=== PATIENT | male | born 1975 | race Caucasian/White ===

== ENCOUNTER → 2018-11-20 12:06 | Outpatient (CLI) | payer OTHER ==
[2015-12-01 03:59] VITALS: BMI 28.9
[~2018-11-20 12:06] MED LIST: ANDROGEL5 GM TP; CLONAZEPAM2 MG/TAB PO; GABAPENTIN100 MG PO; HYDROCODONE-APA1 TAB PO; IBUPROFEN800 MG PO; PEPCID20 MG PO; PERCOCET 10/3251 TA1 PO; PRINIVIL20 MG PO; ZANAFLEX4 MG PO
== END | disposition home or self-care (01) ==
LOC: D.RAD 12:00
PROVIDERS: ATTEND Pediatrics
DX: Z02.71 Encounter for disability determination (principal)

== ENCOUNTER 2019-07-02 09:00 | Outpatient (CLI) | payer BC ==
[2015-12-01 03:59] VITALS: BMI 28.9
== END 2019-07-02 10:00 | disposition home or self-care (01) ==
LOC: D.MAMMO 09:00
PROVIDERS: ATTEND Emergency Medicine
DX: N64.4 Mastodynia (principal)

== ENCOUNTER 2019-11-18 20:41 | Inpatient (IN) | payer BC ==
[~2019-11-18] VITALS: Ht 188 cm; Wt 107.5 kg
[2019-11-18 21:00] VITALS: BP 154/93
[2019-11-18 21:07] LABS: BASOPHILS 0.1 % (0-2); EOSINOPHILS 0.1 % (0-7); HEMATOCRIT 42.9 % (42.0-54.0); HEMOGLOBIN 14.9 g/dL (13.5-17.5); IMMATURE GRANULOCYTES 0.3 % (0-5); LYMPHOCYTES 9.8 % (15-50); MCH 30.5 pg (26.0-34.0); MCHC 34.7 g/dL (31.0-37.0); MCV 87.7 fL (80.0-100.0); MEAN PLATELET VOLUME 9.3 fL (7.4-10.4); MONOCYTES 4.8 % (2-11); NEUTROPHILS 84.9 % (40-80); PLATELET COUNT 143 10x3/uL (130-400); RBC 4.89 10x6/uL (4.20-6.10); RDW 12.5 % (11.5-14.5); WBC 9.4 10x3/uL (4.8-10.8)
[2019-11-18 21:19] LABS: CALC OSMOLALITY 279 mosm/kg (275-300); CALCIUM 10.1 mg/dL (8.5-10.1); CARBON DIOXIDE 26.6 mmol/L (21.0-32.0); CHLORIDE - SERUM 104 mmol/L (98-107); CREATININE - SERUM 1.1 mg/dL (0.6-1.3); GLUCOSE 107 mg/dL (74-106); POTASSIUM - SERUM 3.2 mmol/L (3.5-5.1); SODIUM 139 mmol/L (136-145); UREA NITROGEN 17 mg/dL (7-18); eGFR NON AFRICAN AMERICAN 78 mL/min (90-120)
[2019-11-18 21:20] LABS: BILIRUBIN NEGATIVE (NEGATIVE); GLUCOSE NEGATIVE (NEGATIVE); KETONE NEGATIVE (NEGATIVE); NITRITE NEGATIVE (NEGATIVE); UROBILINOGEN NORMAL (NORMAL)
[2019-11-18 21:30] VITALS: BP 151/91
[2019-11-18 21:42] LABS: ALKALINE PHOSPHATASE 51 U/L (30-120); ALT (SGPT) 30 U/L (10-68); AMYLASE - SERUM 25 U/L (25-115); BILIRUBIN - TOTAL 0.86 mg/dL (0.2-1.3); LIPASE 51 U/L (73-393); PROTEIN - SERUM 7.2 g/dL (6.4-8.2); TROPONIN-I < 0.017 ng/mL (0.000-0.060)
[2019-11-18 23:57] VITALS: BP 177/105; BMI 30.5
[2019-11-19] VITALS: BP 177/105
--- NOTE | 2019-11-19 | NUR ---
PT ARRIVED TO THE FLOOR. ALERT AND ORIENTED. PT IN A LOT OF PAIN. TRYING FOR NEW ORDER OF PAIN MEDICATION. IV SITE LT AC DRESSING CLEAN DRY AND INTACT. BREATHING EVEN AND LABORED. LUNG SOUNDS CLEAR. ABD DISTENDED AND TENDER TO THE TOUCH. SKIN CLEAN DRY AND INTACT. WILL CONTINUE PLAN OF CARE. CALL LIGHT IN REACH. BED LOWERED AND LOCKED. BED RAILS UPX2.
[2019-11-19 01:48] LABS: CREATINE KINASE 145 UL (21-232); TROPONIN-I < 0.017 ng/mL (0.000-0.060)
[2019-11-19 04:00] VITALS: BP 163/106
[2019-11-19 07:11] LABS: ALBUMIN 3.8 g/dL (3.4-5.0); ALKALINE PHOSPHATASE 35 U/L (30-120); ALT (SGPT) 24 U/L (10-68); AMYLASE - SERUM 20 U/L (25-115); BILIRUBIN - TOTAL 1.82 mg/dL (0.2-1.3); CALCIUM 9.7 mg/dL (8.5-10.1); CARBON DIOXIDE 28.7 mmol/L (21.0-32.0); CHLORIDE - SERUM 102 mmol/L (98-107); CKMB 1.4 U/L (0.0-3.6); CREATINE KINASE 92 UL (21-232); CREATININE - SERUM 1.2 mg/dL (0.6-1.3); LIPASE 55 U/L (73-393); PROTEIN - SERUM 6.9 g/dL (6.4-8.2); SODIUM 137 mmol/L (136-145); UREA NITROGEN 16 mg/dL (7-18); eGFR NON AFRICAN AMERICAN 70 mL/min (90-120)
[2019-11-19 07:12] LABS: CALC OSMOLALITY 278 mosm/kg (275-300); GLUCOSE 174 mg/dL (74-106); POTASSIUM - SERUM 4.2 mmol/L (3.5-5.1); TROPONIN-I < 0.017 ng/mL (0.000-0.060)
[2019-11-19 07:12] LABS: APTT 29.9 SECONDS (22.8-39.4); INR 1.07 (0.85-1.17); PROTIME 13.9 SECONDS (11.6-15.0)
[2019-11-19 07:31] LABS: BASOPHILS 0 % (0-2); EOSINOPHILS 0 % (0-7); HEMATOCRIT 44.2 % (42.0-54.0); HEMOGLOBIN 15.3 g/dL (13.5-17.5); IMMATURE GRANULOCYTES 0.2 % (0-5); LYMPHOCYTES 7.3 % (15-50); MCH 30.6 pg (26.0-34.0); MCHC 34.6 g/dL (31.0-37.0); MCV 88.4 fL (80.0-100.0); MEAN PLATELET VOLUME 9.6 fL (7.4-10.4); MONOCYTES 10.8 % (2-11); NEUTROPHILS 81.7 % (40-80); PLATELET COUNT 124 10x3/uL (130-400); RDW 12.5 % (11.5-14.5)
[2019-11-19 07:34] LABS: WBC 4.4 10x3/uL (4.8-10.8)
[2019-11-19 08:00] VITALS: BP 152/96
[2019-11-19 12:00] VITALS: BP 139/94
[2019-11-19 12:48] VITALS: BMI 30.4
[2019-11-19 14:02] VITALS: Ht 188 cm; Wt 107.5 kg
--- NOTE | 2019-11-19 15:57 | NUR ---
PT TEMP 101.4.
[2019-11-19 16:00] VITALS: BP 131/81
[2019-11-19 17:22] LABS: CREATINE KINASE 42 UL (21-232)
[2019-11-19 17:24] LABS: TROPONIN-I < 0.017 ng/mL (0.000-0.060)
[2019-11-19 20:00] VITALS: BP 130/88
[2019-11-20] VITALS: BP 144/90
--- NOTE | 2019-11-20 02:30 | NUR ---
PT TEMP 103.3 - PAGED CHIRAG MENDEZ. CHANGED TYLENOL FROM EVERY Q6HP TO Q4HP (GIVE A DOSE NOW), CXR AND LACTIC ACID ORDERED FOR THIS AM PER VANESSA'S TELEPHONE ORDER. GAVE TYLENOL 650 MG PO WITH SIP OF WATER, ATIVAN 1 MG FOR ANXIETY AND SCHEDULED TORADOL IV PUSH. NO OTHER NEEDS. WILL REASSESS AND CONTINUE TO MONITOR.
[2019-11-20 04:00] VITALS: BP 128/68
[2019-11-20 05:36] LABS: BASOPHILS 0 % (0-2); EOSINOPHILS 0 % (0-7); HEMATOCRIT 42.5 % (42.0-54.0); HEMOGLOBIN 14.2 g/dL (13.5-17.5); IMMATURE GRANULOCYTES 0.2 % (0-5); LYMPHOCYTES 9.1 % (15-50); MCH 30.3 pg (26.0-34.0); MCHC 33.4 g/dL (31.0-37.0); MEAN PLATELET VOLUME 9.2 fL (7.4-10.4); MONOCYTES 3.7 % (2-11); PLATELET COUNT 113 10x3/uL (130-400); RBC 4.68 10x6/uL (4.20-6.10); RDW 12.7 % (11.5-14.5); WBC 4.8 10x3/uL (4.8-10.8)
[2019-11-20 05:38] LABS: MCV 90.8 fL (80.0-100.0)
[2019-11-20 05:54] LABS: ANION GAP 9.7 mmol/L (8-16); BILIRUBIN - TOTAL 1.86 mg/dL (0.2-1.3); CALCIUM 9.6 mg/dL (8.5-10.1); CARBON DIOXIDE 28.3 mmol/L (21.0-32.0); CREATININE - SERUM 1.5 mg/dL (0.6-1.3); MAGNESIUM - SERUM 2.2 mg/dL (1.8-2.4); PROTEIN - SERUM 6.7 g/dL (6.4-8.2)
--- NOTE | 2019-11-20 08:15 | NUR ---
PATIENT IN BED WITH IV INTACT. NO COMPLAINTS OR SIGNS OF DISTRESS. CALL LIGHT WITHIN REACH.
[2019-11-20 08:36] VITALS: BP 146/80
--- NOTE | 2019-11-20 10:40 | NUR ---
PATIENT UP AMBULATING IN [place]. NO COMPLAINTS AT THIS TIME. CALL LIGHT WITHIN REACH.
[2019-11-20 12:00] VITALS: BP 146/80
--- NOTE | 2019-11-20 15:10 | NUR ---
NOTIFIED DR. PRIDE THAT THERE ARE NO DEMEROL SPANISH LECTURER'S. STATED TO GIVE PATIENT DEMEROL IVP 25 MG Q2H PRN. PATIENT STATED HE DID NOT WANT TO GET RID OF HIS SPANISH LECTURER. WILL NOTIFY DR. PRIDE. SPANISH LECTURER DILAUDID LEFT AND DID NOT ORDER DEMEROL. PATIENT RECIEVED TYLENOL PRN AND ATIVAN PRN AT THIS TIME. SCHEDULED MEDS GIVEN WELL. IV INTACT. CALL LIGHT WITHIN REACH.
[2019-11-20 16:00] VITALS: BP 142/76
--- NOTE | 2019-11-20 16:30 | NUR ---
PATIENT STILL COMPLAINING OF A RIVERA. ALREADY GAVE TYLENOL, TORADOL, AND ATIVAN. PATIENT DOESNT WANT TO CHANGE DILAUDID FUNERAL PRE ARRANGEMENT SPECIALIST. EXPLAINED I DIDNT KNOW ANYTHING ELSE THAT COULD BE CAUSING RIVERA, BUT IF HE WANTED TO CHANGE HIS MIND ABOUT THE DILAUDID TO LET ME KNOW. VERBALIZED UNDERSTANDING. CALL LIGHT WITHIN REACH.
--- NOTE | 2019-11-20 18:10 | NUR ---
PATIENT STATED HE VOMITTED UP SOME BILE IN TOILET. SMALL AMOUNT. NO NAUSEA NOW. STATED RIVERA WASNT BETTER BUT DOESNT SEEM TO BE IN ANY DISTRESS. HAS HAD 3 BM'S TODAY. STATED HE HOPES HE CAN HAVE SOME SHERBERT SOON. NO COMPLAINTS AT THIS TIME. MOUTH WASH, TOOTHPASTE, AND TOOTHBRUSH GIVEN TO PATIENT. CALL LIGHT WITHIN REACH.
[2019-11-20 20:00] VITALS: BP 136/87
--- NOTE | 2019-11-20 20:00 | NUR ---
PT STATES HE IS NAUSEATED. GAVE PT EMESIS BAG AND PILLOW TO SPLINT WHILE I WENT TO GET ZOFRAN. PT VOMITED APPROX 600 CC'S GREEN EMESIS. GAVE PT ZOFRAN. PT STATES HE IS NO LONGER NAUSEATED BUT C/O OF HEADACHE PAIN 11/30. GAVE TYLENOL FOR HEADACHE PAIN. PT STATES TORADOL MAY BE CAUSING HIS HEADACHE AND REFUSED THE SCHEDULED DOSE. DILAUDID SUPERVISOR PERSONNEL CLERKS FOR PAIN CONTROL. NO OTHER NEEDS. WILL REASSESS AND CONTINUE TO MONITOR.
[2019-11-21] VITALS: BP 150/93
--- NOTE | 2019-11-21 02:45 | NUR ---
PT STATES HIS HEADACHE PAIN IS BETTER 4 OR 5/10. REFUSED THIS DOSE OF TORADOL. GAVE TYLENOL FOR HEADACHE. STATES HIS ABDOMEN FEELS SOFTER, LESS TIGHT. NO OTHER NEEDS. WILL REASSESS AND CONTINUE TO MONITOR.
[2019-11-21 04:00] VITALS: BP 148/97
[2019-11-21 05:46] LABS: ALBUMIN 2.5 g/dL (3.4-5.0); ANION GAP 10.1 mmol/L (8-16); BILIRUBIN - TOTAL 1.1 mg/dL (0.2-1.3); CALCIUM 9.7 mg/dL (8.5-10.1); CREATININE - SERUM 1.2 mg/dL (0.6-1.3); MAGNESIUM - SERUM 2.2 mg/dL (1.8-2.4); POTASSIUM - SERUM 4.1 mmol/L (3.5-5.1); PROTEIN - SERUM 6.3 g/dL (6.4-8.2)
[2019-11-21 06:56] LABS: BASOPHILS 0 % (0-2); EOSINOPHILS 0.3 % (0-7); HEMATOCRIT 37.3 % (42.0-54.0); HEMOGLOBIN 12.3 g/dL (13.5-17.5); IMMATURE GRANULOCYTES 0.2 % (0-5); LYMPHOCYTES 6.8 % (15-50); MCH 29.9 pg (26.0-34.0); MCV 90.5 fL (80.0-100.0); MEAN PLATELET VOLUME 9.8 fL (7.4-10.4); MONOCYTES 6.5 % (2-11); NEUTROPHILS 86.2 % (40-80); PLATELET COUNT 111 10x3/uL (130-400); RBC 4.12 10x6/uL (4.20-6.10); RDW 12.2 % (11.5-14.5); WBC 5.9 10x3/uL (4.8-10.8)
[2019-11-21 08:00] VITALS: BP 153/92
--- NOTE | 2019-11-21 08:00 | NUR ---
TURNED OFF HOST. PATIENT DIDNT WANT ANYMORE. STARTED DEMORAL IV 25 MG Q2HPRN ORDERED PREVIOUSLY BY DR. PRIDE. PATIENT FEELING BETTER. RESTING QUIETLY WITH NO COMPLAINTS. CALL LIGHT WITHIN EACH.
[2019-11-21 12:00] VITALS: BP 156/97
--- NOTE | 2019-11-21 13:15 | NUR ---
PATIENT ATE POPCICLE AND A CUP OF APPLE JUICE AT THIS TIME. STATED THAT THE TILT TRAY DRIVER TOLD HIM HE SHOULDNT BE EATING YET AND THAT HE WOULD HAVE TO HAVE TO HAVE THIS FIXED BEFORE HE CAN DC. STATED SHE WAS MAD AT HIM. ALSO STATED THAT THE SURGEON SAID THAT HE DOESNT HAVE TO HAVE SURGERY BEFORE DC AND CLEAR LIQUIDS WERE OK. EXPLAINED TO PATIENT THAT CLEARS ARE OK FOR HIM TO TAKE SLOWLY AND THAT THE SURGEON WILL LET HIM KNOW IF HE NEEDS SURGERY. SPOKE WITH TILT TRAY DRIVER. EXPLAINED WHAT PATIENT SAID ABOUT EATING AT THIS TIME, AND THAT HE THOUGHT SHE WAS MAD. CHIRAG WENT AND SPOKE WITH PATIENT AGAIN AND TOLD HIM THAT SHE WAS NOT MAD AND THAT SHE SAID THAT HE NEEDS TO GO SLOW WHEN TAKING THE CLEAR LIQUIDS AND THAT HIS DIET WAS UP TO THE SURGEON. SHE STATED SHE JUST ADVISED HIM TO PATIENT STATES HE FEELS BETTER NOW AND IV INTACT. CALL LIGHT WITHIN REACH. TAKE IT SLOW. PATIENT VERBALIZED UNDERSTANDING. EXPLAINED TO TILT TRAY DRIVER THAT PATIENT DID VOMIT AFTER I GAVE HIM DEMEROL. THAT HE SAID HE FELT REAL HOT AND THEN JUST THREW UP SO I THOUGHT IT WAS THE MEDICINE AT THIS TIME AND HAD ALSO EXPLAINED TO THE PATIENT NOT TO TAKE THE CLEAR LIQUIDS TOO FAST BC OF NAUSEA.
[2019-11-21 16:00] VITALS: BP 161/96
--- NOTE | 2019-11-21 16:45 | NUR ---
PATIENT TOLERATED POPSICLE AND SOME JELLO WITH NO N/V AT THIS TIME. IV INTACT. NO COMPLAINTS. CALL L IGHT WITHIN REACH.
--- NOTE | 2019-11-21 17:40 | NUR ---
PATIENT RECIEVED DEMORAL AND ZOFRAN AT THIS TIME FOR PAIN. WANTED ZOFRAN WITH DEMERAL BECAUSE HE SAYS HES AFRAID IT WILL MAKE HIM THROW UP AGAIN. IV INTACT. CALL LIGHT WITHIN REACH.
--- NOTE | 2019-11-21 18:51 | NUR ---
SPOKE WITH DR. PRIDE ABOUT PATIENTS VOMITTING. EXPLAINED I GAVE ZOFRAN AND DEMORAL TOGETHER HOUR AGO AND THAT PATIENT ONLY HAD POPSICLE AND SMALL AMOUNT OF JELLO. NO NEW ORDERS RECIEVED AT THIS TIME. PATIENT IN BED WITH IV INTACT. NO COMPLAINTS. CALL LIGHT WITHIN REACH.
[2019-11-21 21:01] VITALS: BP 157/93
[2019-11-22 05:15] LABS: BASOPHILS 0.2 % (0-2); EOSINOPHILS 1.7 % (0-7); HEMATOCRIT 35.9 % (42.0-54.0); HEMOGLOBIN 12.1 g/dL (13.5-17.5); IMMATURE GRANULOCYTES 0.2 % (0-5); LYMPHOCYTES 7.5 % (15-50); MCH 30.1 pg (26.0-34.0); MCHC 33.7 g/dL (31.0-37.0); MCV 89.3 fL (80.0-100.0); MEAN PLATELET VOLUME 9.7 fL (7.4-10.4); MONOCYTES 8.5 % (2-11); NEUTROPHILS 81.9 % (40-80); RBC 4.02 10x6/uL (4.20-6.10)
[2019-11-22 05:18] LABS: PLATELET COUNT 140 10x3/uL (130-400)
[2019-11-22 05:51] LABS: ALBUMIN 2.5 g/dL (3.4-5.0); ANION GAP 8.8 mmol/L (8-16); BILIRUBIN - TOTAL 0.81 mg/dL (0.2-1.3); CALCIUM 9.5 mg/dL (8.5-10.1); CARBON DIOXIDE 28.3 mmol/L (21.0-32.0); CREATININE - SERUM 1.3 mg/dL (0.6-1.3); MAGNESIUM - SERUM 2.1 mg/dL (1.8-2.4); PROTEIN - SERUM 6.4 g/dL (6.4-8.2)
[2019-11-22 05:52] LABS: POTASSIUM - SERUM 3.1 mmol/L (3.5-5.1)
[2019-11-22 06:10] VITALS: BP 156/93
--- NOTE | 2019-11-22 08:15 | NUR ---
PATIENT RECIEVED DEMEROL AND TORADOL. IV INTACT. CALL LIGHT WITHN REACH.
[2019-11-22 08:16] VITALS: BP 143/96
--- NOTE | 2019-11-22 10:15 | NUR ---
PATIENT IN BED WITH IV INTACT. RECIEVED DEMEROL IVP AGAIN. STATES HE IS HAVING WORSENED RLQ PAIN. STATED HE THINKS A POTASSIUM TABLET IS STUCK IN HIS SIDE. EXPLAINED THAT WHEN HE TAKES THE MED IT DIGESTS BEFORE IT LEAVES HIS ABDOMEN. VERBALIZED UNDERSTANDING. WANTS ME TO CALL DR. PRIDE AND LET HIM KNOW AND TELL HIM DR. BEDOYA SAID HE MAY NEED MORE SCANS. RANJEET PRIDE. STATED HE WOULD SEE HIM AFTER CLINIC. CALL LIGHT WITHIN REACH.
--- NOTE | 2019-11-22 11:50 | NUR ---
PATIENT LAYING IN BM AT THIS TIME. REFUSES TO GET UP AND GET CHANGED BC HE DOESNT WANT TO UNTIL HE GETS MEDICINE AGAIN. IV INTACT. CALL LIGHT WITHIN REACH.
[2019-11-22 12:11] VITALS: BP 168/103
--- NOTE | 2019-11-22 13:49 | NUR ---
Nutrition follow-up: Diet advanced to clear liquids Pt continues with N/V per nurse Labs reviewed +BM Wt: 236# Will need nutrition support started within 24 hours if pt continues to have N/V with clear liquids. RDN following.
[2019-11-22 16:54] VITALS: BP 168/100
[2019-11-22 21:58] VITALS: BP 148/96
[2019-11-23 00:51] VITALS: BP 145/96
[2019-11-23 05:29] LABS: BASOPHILS 0.1 % (0-2); EOSINOPHILS 0.4 % (0-7); HEMATOCRIT 41.6 % (42.0-54.0); HEMOGLOBIN 14.3 g/dL (13.5-17.5); IMMATURE GRANULOCYTES 0.8 % (0-5); LYMPHOCYTES 10.3 % (15-50); MCH 30.4 pg (26.0-34.0); MCHC 34.4 g/dL (31.0-37.0); MCV 88.3 fL (80.0-100.0); MEAN PLATELET VOLUME 9.4 fL (7.4-10.4); MONOCYTES 14.5 % (2-11); NEUTROPHILS 73.9 % (40-80); RBC 4.71 10x6/uL (4.20-6.10); RDW 12.1 % (11.5-14.5); WBC 7.5 10x3/uL (4.8-10.8)
[2019-11-23 05:52] LABS: PLATELET COUNT 184 10x3/uL (130-400)
[2019-11-23 06:16] VITALS: BP 133/83
[2019-11-23 06:17] LABS: ALBUMIN 2.3 g/dL (3.4-5.0); ALKALINE PHOSPHATASE 40 U/L (30-120); ALT (SGPT) 17 U/L (10-68); CALCIUM 9.1 mg/dL (8.5-10.1); CARBON DIOXIDE 26.3 mmol/L (21.0-32.0); CHLORIDE - SERUM 105 mmol/L (98-107); GLUCOSE 124 mg/dL (74-106); MAGNESIUM - SERUM 1.9 mg/dL (1.8-2.4); PHOSPHOROUS 3.1 mg/dL (2.5-4.9); PROTEIN - SERUM 6.1 g/dL (6.4-8.2); SODIUM 139 mmol/L (136-145); eGFR NON AFRICAN AMERICAN > 90 mL/min (90-120)
--- NOTE | 2019-11-23 06:26 | NUR ---
TYLENOL 650MG GIVEN AT 0014 PER PHONE ORDER FROM DR MIRANDA TO GIVE PO TYELOL FOR TEMP OF 102.9 AND AT 0624 FOR TEMP OF 102.0
[2019-11-23 07:10] LABS: CALC OSMOLALITY 279 mosm/kg (275-300); CREATININE - SERUM 0.9 mg/dL (0.6-1.3); POTASSIUM - SERUM 3.6 mmol/L (3.5-5.1); UREA NITROGEN 15 mg/dL (7-18)
[2019-11-23 08:45] VITALS: BP 138/84
--- NOTE | 2019-11-23 15:26 | NUR ---
I have reviewed this patient and I concur with the Shift Assessment completed by the Licensed Practical Nurse today this shift.
[2019-11-23 16:11] VITALS: BP 131/78
--- NOTE | 2019-11-23 16:59 | NUR ---
DR. PRIDE HERE MAKING ROUNDS REC'D ORDERS TO RESUME DEMEROL PER ORDERS AND ALSO CHANGED TOOLING ENGINEER FROM MORPHINE TO DILUADID AT THIS TIME.
[2019-11-23 20:58] VITALS: BP 144/79
[2019-11-24 00:32] VITALS: BP 152/85
--- NOTE | 2019-11-24 02:19 | NUR ---
I have reviewed this patient and I concur with the Shift Assessment completed by the Licensed Practical Nurse today this shift.
[2019-11-24 04:35] VITALS: BP 160/92
[2019-11-24 06:04] LABS: BASOPHILS 0.2 % (0-2); EOSINOPHILS 0.3 % (0-7); HEMATOCRIT 40.7 % (42.0-54.0); HEMOGLOBIN 13.7 g/dL (13.5-17.5); IMMATURE GRANULOCYTES 1.3 % (0-5); LYMPHOCYTES 4.6 % (15-50); MCH 30.2 pg (26.0-34.0); MCHC 33.7 g/dL (31.0-37.0); MCV 89.6 fL (80.0-100.0); MEAN PLATELET VOLUME 9.5 fL (7.4-10.4); MONOCYTES 10.2 % (2-11); NEUTROPHILS 83.4 % (40-80); PLATELET COUNT 212 10x3/uL (130-400); RBC 4.54 10x6/uL (4.20-6.10); RDW 12.3 % (11.5-14.5)
[2019-11-24 06:26] LABS: WBC 10.5 10x3/uL (4.8-10.8)
[2019-11-24 06:32] LABS: ALKALINE PHOSPHATASE 46 U/L (30-120); ALT (SGPT) 21 U/L (10-68); BILIRUBIN - TOTAL 3.08 mg/dL (0.2-1.3); CALC OSMOLALITY 283 mosm/kg (275-300); CALCIUM 8.7 mg/dL (8.5-10.1); CHLORIDE - SERUM 107 mmol/L (98-107); CREATININE - SERUM 0.9 mg/dL (0.6-1.3); GLUCOSE 138 mg/dL (74-106); MAGNESIUM - SERUM 1.9 mg/dL (1.8-2.4); PHOSPHOROUS 2.8 mg/dL (2.5-4.9); PROTEIN - SERUM 5.2 g/dL (6.4-8.2); SODIUM 141 mmol/L (136-145); UREA NITROGEN 15 mg/dL (7-18); eGFR NON AFRICAN AMERICAN > 90 mL/min (90-120)
[2019-11-24 06:35] LABS: ALBUMIN 1.7 g/dL (3.4-5.0); POTASSIUM - SERUM 4.2 mmol/L (3.5-5.1)
[2019-11-24 08:30] VITALS: BP 183/90
--- NOTE | 2019-11-24 09:26 | NUR ---
REC'D DEMEROL AT THIS TIME FOR C/O ABD. PAIN. C/L IN REACH AT BEDSIDE
[2019-11-24 12:16] VITALS: BP 134/80
--- NOTE | 2019-11-24 13:58 | NUR ---
Nutrition follow-up: Pt is now NPO except ice chips Labs reviewed s/p hals colectomy with colostomy Wt: 236# Will need nutrition support started within 24 hours unless diet can resume. Recommend TPN. RDN following.
[2019-11-24 14:54] VITALS: BP 139/96
--- NOTE | 2019-11-24 15:50 | NUR ---
YI CATH DC AT THIS TIME WITH 100 CC NOTED TO COLLECTION DEVICE.
--- NOTE | 2019-11-24 15:50 | NUR ---
WAS MEDICATED WITH DEMEROL AT THIS TIME FOR C/O ABD PAIN. C/L IN REACH AT BEDSIDE
[2019-11-24 20:00] VITALS: BP 141/96
--- NOTE | 2019-11-24 20:31 | NUR ---
I have reviewed this patient and I concur with the Shift Assessment completed by the Licensed Practical Nurse today this shift.
[2019-11-25] VITALS: BP 145/91
--- NOTE | 2019-11-25 02:12 | NUR ---
PT PULLED OUT IV AND NG TUBE. PT STATES HE WOKE UP NOT KNOWING WHERE HE WAS AND HE STARTED PULLING ON THINGS. CALLED ONCALL FOR DR. PRIDE WHICH IS DR. MIRANDA. DR. MIRANDA SAID TO HOLD REPLACEMENT OF NG TUBE FOR RIGHT NOW. WILL CONTINUE TO CLOSELY MONITOR.
--- NOTE | 2019-11-25 03:55 | NUR ---
RESITED PT IV LT HAND 22G. ATTEMPTS X2. PT TOLERATED WELL. IV FLUIDS CONTINUED. WILL COTNINUE PLAN OF CARE. CALL LIGHT IN REACH.
[2019-11-25 04:00] VITALS: BP 147/95
--- NOTE | 2019-11-25 04:18 | NUR ---
I have reviewed this patient and I concur with the Shift Assessment completed by the Licensed Practical Nurse today this shift.
--- NOTE | 2019-11-25 04:51 | NUR ---
PT VOMITING. EVEN AFTER GIVEN PRN ZOFRAN. CALLED ONCALL DOCTOR RUBEN. GIVEN ORDER TO DROP NG TUBE. 16FR LT NARE PLACED. NO PROBLEMS AT ALL IN PLACING. CHECKED PLACEMENT BY AUSCULTAION. STAT KUB ORDER PUT IN PER POLICY TO CONFIRM PLACEMENT. WILL FALLOW UP. PT TOLERATED WELL.
[2019-11-25 05:12] LABS: BASOPHILS 0.3 % (0-2); EOSINOPHILS 1.3 % (0-7); HEMATOCRIT 38.8 % (42.0-54.0); HEMOGLOBIN 12.7 g/dL (13.5-17.5); IMMATURE GRANULOCYTES 1.2 % (0-5); LYMPHOCYTES 4.3 % (15-50); MCH 29.3 pg (26.0-34.0); MCHC 32.7 g/dL (31.0-37.0); MCV 89.6 fL (80.0-100.0); MEAN PLATELET VOLUME 9.7 fL (7.4-10.4); MONOCYTES 6.5 % (2-11); NEUTROPHILS 86.4 % (40-80); RBC 4.33 10x6/uL (4.20-6.10); RDW 12.2 % (11.5-14.5)
[2019-11-25 05:28] LABS: PLATELET COUNT 297 10x3/uL (130-400); WBC 13.9 10x3/uL (4.8-10.8)
[2019-11-25 05:55] LABS: ALBUMIN 1.8 g/dL (3.4-5.0); ALKALINE PHOSPHATASE 52 U/L (30-120); BILIRUBIN - TOTAL 3.33 mg/dL (0.2-1.3); CALC OSMOLALITY 276 mosm/kg (275-300); CALCIUM 8.8 mg/dL (8.5-10.1); CARBON DIOXIDE 30.3 mmol/L (21.0-32.0); CHLORIDE - SERUM 104 mmol/L (98-107); CREATININE - SERUM 0.9 mg/dL (0.6-1.3); GLUCOSE 118 mg/dL (74-106); MAGNESIUM - SERUM 1.8 mg/dL (1.8-2.4); PHOSPHOROUS 2.2 mg/dL (2.5-4.9); POTASSIUM - SERUM 3.8 mmol/L (3.5-5.1); PROTEIN - SERUM 5.5 g/dL (6.4-8.2); SODIUM 138 mmol/L (136-145); UREA NITROGEN 13 mg/dL (7-18); eGFR NON AFRICAN AMERICAN > 90 mL/min (90-120)
[2019-11-25 06:02] LABS: ALT (SGPT) 27 U/L (10-68)
[2019-11-25 08:00] VITALS: BP 155/90
--- NOTE | 2019-11-25 10:23 | MORECARE ---
CASE MANAGEMENT DISCHARGE SUMMARY PATIENT: JOLENE BIANCHI UNIT: [id number] ADM DATE: 11/18/19 AGE: 44 : 77 SEX: M ROOM/BED: D.2228 AUTHOR: LIBAN YOUNG PHYSICIAN: REFERRING PHYSICIAN: MARIEL BEDOYA MD DATE OF SERVICE: 11/25/19 Discharge Plan Patient Name: [facility]ENE [facility]IANCHI [facility] [facility] 1975 Planned Disposition: Home Anticipated Discharge Date: Discharge Date: Expected LOS: Initial Reviewer: [email or web address] Initial Review Date: 11/25/2019 Generated: 11/25/19 11:23 am DCPIA - Discharge Planning Initial Assessment Updated by [email or web address]: Cally Knapp on 11/25/19 10:22 am * Is the patient Alert and Oriented? No * PCP AURELIANO * [facility] * Preadmission Environment Home Alone * ADLs Independent * Community resources currently utilized None * Can the patient safely return to the preadmission environment? Yes * Has this patient been hospitalized within the prior 30 days at any hospital? No Patient Name: JOLENE BIANCHI Page [id number] at 1023 All edits/amendments must be made on the electronic document DICTATION DATE: 11/25/19 1023 DOCK GUARD: CHASE 11/25/19 1023 RPT#: [id number] DC DATE: STATUS: ADM IN [facility] [address] [place] [address] END OF REPORT
--- NOTE | 2019-11-25 10:30 | MORECARE ---
CASE MANAGEMENT DISCHARGE SUMMARY PATIENT: JOLENE BIANCHI UNIT: [id number] ADM DATE: 11/18/19 AGE: 44 : 77 SEX: M ROOM/BED: D.2228 AUTHOR: LIBAN YOUNG PHYSICIAN: REFERRING PHYSICIAN: MARIEL BEDOYA MD DATE OF SERVICE: 11/25/19 Discharge Plan Patient Name: JOLENE BIANCHI Facility: [facility]:[place] : 1975 Planned Disposition: Home Anticipated Discharge Date: Discharge Date: Expected LOS: Initial Reviewer: [email or web address] Initial Review Date: 11/25/2019 Generated: 11/25/19 11:30 am Comments DCP- Discharge Planning Updated by [email or web address]: Cally Knapp on 11/25/19 9:[address] Patient Name: JOLENE BIANCHI Admission Status: ER Accout number: [id number] Admission Date: 11-18-2019 : 1975 Admission Diagnosis:UNSPECIFIED ABDOMINAL PAIN Attending: ELOINA BEDOYA Current LOS: 7 Anticipated DC Date: Planned Disposition: Home Primary Insurance: [employer] EXCHANGE Discharge Planning Comments: CM met with patient at bedside after explaining CM role and obtaining verbal consent. CM discussed availability / needs of home health, REHAB and medical equipment. PATIENT DENIES NEED FOR HH OR REHAB. HE WILL NEED COLOSTOMY SUPPLIES. KATIE SIGNED FOR NO PREFERENCE FOR DME COMPANY. CM WILL FOLLOW AND ASSIST NEEDED. Pharmacy Coordinator: Cally Knapp DCPIA - Discharge Planning Initial Assessment Updated by [id number]: Cally Knapp on 11/25/19 10:22 am * Is the patient Alert and Oriented? No * PCP AURELIANO * [facility] * Preadmission Environment Home Alone * ADLs Independent * Community resources currently utilized None * Can the patient safely return to the preadmission environment? Yes * Has this patient been hospitalized within the prior 30 days at any hospital? No Last DP export: 11/25/19 9:23 am Patient Name: JOLENE BIANCHI Page [phone] at 1030 All edits/amendments must be made on the electronic document DICTATION DATE: 11/25/19 1030 FLOOR FRAMER: CHASE 11/25/19 1030 RPT#: [id number] DC DATE: STATUS: ADM IN [facility] [address] [place] [address] END OF REPORT
[2019-11-25 12:00] VITALS: BP 158/90
[2019-11-25 16:00] VITALS: BP 166/85
--- NOTE | 2019-11-25 16:20 | NUR ---
I have reviewed this patient and I concur with the Shift Assessment completed by the Licensed Practical Nurse today this shift.
--- NOTE | 2019-11-25 16:54 | OP ---
PATIENT NAME: JOLENE BIANCHI MEDICAL RECORD: [id number] :[birth year] LOCATION:D.MS [id number] ADMISSION DATE:11/18/19 SURGEON: KEM PRIDE MD DATE OF OPERATION: 11/23/2019 PREOPERATIVE DIAGNOSES: 1. Sigmoid diverticulitis. 2. Intraabdominal abscesses secondary to sigmoid diverticulitis. 3. Sepsis. 4. Chronic low back pain. POSTOPERATIVE DIAGNOSES: 1. Sigmoid diverticulitis. 2. Intraabdominal abscesses secondary to sigmoid diverticulitis. 3. Sepsis. 4. Chronic low back pain. PROCEDURE: 1. Hand-assisted laparoscopic Jesse's procedure. 2. EGD. SURGEON: Kem Pride MD REPORT OF PROCEDURE: The patient's abdomen was prepped and draped in sterile fashion. A cutdown was made in the midline in the suprapubic region and electrocautery was used to dissect through the subcutaneous tissues and fascia until we bluntly entered the abdominal cavity. We immediately encountered a purulent pocket. Cultures were taken times 2. We then suctioned out all the purulent material and was able to free up the omentum from the anterior abdominal wall. Once we did this, we were able to place the Gelport with a 5-mm trocar within it. With a GelPort in place, we could insufflate the abdomen and could see there was a large amount of inflammatory adhesions present mainly in the pelvis and bilateral lower quadrants. A 5-mm trocar was placed under direct visualization in the right lateral abdomen, and after we freed up some adhesions and we were able to place a 12-mm trocar just anterior to the right anterior superior iliac crest, I took down a lot of adhesions, abscess pockets in the small bowel and near the sigmoid colon and proximal rectum. Once we freed all these up, we irrigated out the abdomen with normal saline until we got a clear return of fluid. I could not see any evidence of any injury to the small bowel. I ran the small bowel as much as what was safe and could get all of the inflamed small bowel extending into the patient's right colon and extending proximally until the small bowel became normal in caliber as it extended into the upper abdomen. There were a lot inflammatory adhesions to the small bowel and the mesentery was eventually able to elevate the patient's sigmoid colon and took down the white line of Toldt on the distal descending colon and the sigmoid colon and elevate this to where I could finger fracture an opening in the proximal mesorectum near a normal appearing area of noninflamed rectal tissue. This was transected with a 45 blue load Endo-BECYK stapler. The mesentery was then taken down with sequential fires of white load Endo-BECKY staplers. We then attempted to place an NG tube because the patient had a large amount of dilated small bowel and very dilated stomach. Multiple attempts were made in both nares and we could not ever get it to safely pass it down so an EGD was performed and I was eventually able to suction out the air from the patient's stomach and pass an NG tube into the antrum of the stomach. This was tied into place and the endoscope was removed. The stomach itself appeared to be normal with no signs OPERATIVE REPORT [id number] BIANCHI,JOLENE of any ulcerations or masses. We then approached the abdomen one more time. We irrigated out again and assured there was no sign of any bleeding or bile leakage. A 19 round Luis drain was placed in the pelvis through the left lower quadrant and another 19-Occitan round Luis drain was inserted through the 5-mm trocar site and extended down the right abdomen into the pelvis. These were both sutured into place with 4-0 nylons and opening was then made on the left lateral abdomen just inferior to the patient's umbilicus to house our ostomy. Electrocautery was used to dissect through the subcutaneous tissues. We made a cruciate incision on the anterior fascia and spread the fibers of the rectus muscle and did a longitudinal incision to the posterior fascia. We then eviscerated the distal descending colon through this opening and left it in place. We changed gown and gloves and then closed the fascia of the midline incision using running #1 loop PDS times 2. We irrigated out the wound thoroughly and then reapproximated the subcutaneous tissues with multiple interrupted 3-0 Vicryls. The skin incisions were all closed with jason. After we covered the incisions, then we matured the ostomy in a brooking fashion using multiple interrupted 4-0 Vicryls. The ostomy was brooked about 2 cm and appeared viable at the conclusion of the case with no signs of necrotic tissue or cyanosis. Ostomy bag was applied along with dressings to all of the wounds. COMPLICATIONS: None. CONDITION: Stable. ANESTHESIA: General endotracheal. BLOOD LOSS: 100 mL. TRANSINT:[id number] Voice Confirmation ID: [id number] DOCUMENT ID: [id number] KEM PRIDE MD at 1654 CC: ELOINA BEDOYA [id number] DICTATION DATE: 11/23/19 1444 BOARD CERTIFIED BEHAVIORAL ANALYST: 11/24/19 0135 ADM IN [facility] [id number] [place] [address]
--- NOTE | 2019-11-25 18:30 | NUR ---
CHELLE MGN HERE REC'D ORDERS FOR BENYDRL 25 MG X ONE DOSE NOW AND THAT HE MAY HAVE ANOTHER DOSE X 1 LATER. PT IS AWARE OF ORDERS. FAMILY AT BEDSIDE. C/L IN REACH AT BEDSIDE
[2019-11-25 20:00] VITALS: BP 152/94
--- NOTE | 2019-11-26 02:11 | NUR ---
I have reviewed this patient and I concur with the Shift Assessment completed by the Licensed Practical Nurse today this shift.
--- NOTE | 2019-11-26 03:45 | NUR ---
PT PULLED OUT NG TUBE. PT STATES WOKE UP NOT KNOWING WHAT HE WAS DOING STUCK HIS FINGER IN HIS THROAT AND STARTED GAGGING. NG TUBE COMING OUT OF MOUTH BY THE TIME I GOT IN TO PATIENTS ROOM. NEW NG PLACED 16 FR. ALSCULTATED STOMACH FOR PLACEMENT. ORDERED STANDERED ORDER FOR KUB TO MAKE SURE OF PLACEMENT OF NG. WILL FALLOW UP.
[2019-11-26 04:00] VITALS: BP 159/91
[2019-11-26 07:02] LABS: BASOPHILS 0.3 % (0-2); EOSINOPHILS 0.7 % (0-7); HEMATOCRIT 36.7 % (42.0-54.0); HEMOGLOBIN 12.4 g/dL (13.5-17.5); IMMATURE GRANULOCYTES 1.3 % (0-5); LYMPHOCYTES 6.3 % (15-50); MCH 30.2 pg (26.0-34.0); MCHC 33.8 g/dL (31.0-37.0); MCV 89.3 fL (80.0-100.0); MEAN PLATELET VOLUME 9.7 fL (7.4-10.4); MONOCYTES 4.5 % (2-11); NEUTROPHILS 86.9 % (40-80); RBC 4.11 10x6/uL (4.20-6.10); RDW 12.2 % (11.5-14.5); WBC 15.2 10x3/uL (4.8-10.8)
[2019-11-26 07:12] LABS: PLATELET COUNT 359 10x3/uL (130-400)
[2019-11-26 07:14] LABS: ALBUMIN 1.8 g/dL (3.4-5.0); ALKALINE PHOSPHATASE 64 U/L (30-120); ALT (SGPT) 32 U/L (10-68); BILIRUBIN - TOTAL 1.51 mg/dL (0.2-1.3); CALC OSMOLALITY 277 mosm/kg (275-300); CALCIUM 8.9 mg/dL (8.5-10.1); CARBON DIOXIDE 28.9 mmol/L (21.0-32.0); CHLORIDE - SERUM 101 mmol/L (98-107); CREATININE - SERUM 0.9 mg/dL (0.6-1.3); GLUCOSE 118 mg/dL (74-106); MAGNESIUM - SERUM 2.1 mg/dL (1.8-2.4); PHOSPHOROUS 2.4 mg/dL (2.5-4.9); POTASSIUM - SERUM 3.7 mmol/L (3.5-5.1); PROTEIN - SERUM 5.8 g/dL (6.4-8.2); SODIUM 138 mmol/L (136-145); UREA NITROGEN 15 mg/dL (7-18); eGFR NON AFRICAN AMERICAN > 90 mL/min (90-120)
--- NOTE | 2019-11-26 07:34 | NUR ---
PT IS RESTING IN BED WITH EYES CLOSED. RESPIRATIONS ARE EVEN AND UNLABORED. PT IS EASILY AROUSED WITH VERBAL STIMULATION. UPON AROUSAL PT EXHIBITS CONFUSION TO SITUATION AND PLACE. PT IS EASILY REORIENTED TO SITUATION AND PLACE. PT WITH SLURRING OF SPEECH UPON AROUSAL BUT IS UNDERSTANDABLE AND ANSWERS ALL QUESTIONS APPROPRIATLEY. NG TUBE TO LEFT NARE SET TO LIS. DARK GREEN FLUID NOTED TO COLLECTION CHAMBER. PT DENIES PRESENCE OF N/V AT THIS TIME. COLOSTOMY NOTED TO LLQ. STOMA IS BEEFY RED IN APPEARANCE. NO SIGN OF STOOL NOTED TO COLOSTOMY BAG. BS ARE HYPOACTIVE X 4. BILATERAL ABDOMINAL EVANGELISTA DRAINS NOTED AND WITH SCANT AMOUNT OF SEROUS FLUID NOTED TO BULB. BOTH EVANGELISTA DRAIN BULBS ARE COMPRESSED AT THIS TIME AND DRESSINGS ARE CDI. PT DENIES PRESENCE OF DIZZINESS/DYSPNEA AT THIS TIME. BED IS IN THE LOWEST POSITION. CALL LIGHT AND BEDSIDE TABLE ARE WITHIN REACH. SIDE RAILS X 2. PT DENIES FURTHER NEEDS. WILL CONT TO MONITOR.
[2019-11-26 08:00] VITALS: BP 142/97
[2019-11-26 12:00] VITALS: BP 140/94
--- NOTE | 2019-11-26 15:45 | NUR ---
PIV TO LEFT HAND WITH REDNESS. PT DENIES PRESENCE OF TENDERNESS. PIV REMOVED WITH CATHETER TIP INTACT. DRESSING APPLIED. 20 G TO LEFT AC X 1 ATTEMPT. PT TOLERATED WELL. PIV INFUSING WITHOUT DIFFICULTY PER ORDER. SEE EMAR. PT DENIES FURTHER NEEDS. WILL CONT TO MONITOR.
[2019-11-26 16:00] VITALS: BP 150/98
--- NOTE | 2019-11-27 02:45 | NUR ---
ALERT AND ORENTED ABLE TO VOICE NEEDS AND WANTS TO STAFF. TEACHING THIS SHIFT ON EMPTING CLOSTOMY BAG., CALL LIGHT IN REACH. NG TUBE IN PLACE CLAMPED. IV IN PLACE AND PATEN PROCAL AT 125ML/HE. 2 EVANGELISTA DRAINS IN [PLACE RIGHT ANF LEFT SIDE. MIDLINE INSECION.
[2019-11-27 04:00] VITALS: BP 174/106
[2019-11-27 07:02] LABS: BASOPHILS 0.3 % (0-2); EOSINOPHILS 0.7 % (0-7); HEMATOCRIT 37.8 % (42.0-54.0); HEMOGLOBIN 12.4 g/dL (13.5-17.5); IMMATURE GRANULOCYTES 1.5 % (0-5); LYMPHOCYTES 6.4 % (15-50); MCH 29.5 pg (26.0-34.0); MCHC 32.8 g/dL (31.0-37.0); MCV 89.8 fL (80.0-100.0); MEAN PLATELET VOLUME 9.4 fL (7.4-10.4); MONOCYTES 4.6 % (2-11); NEUTROPHILS 86.5 % (40-80); RBC 4.21 10x6/uL (4.20-6.10); RDW 12.2 % (11.5-14.5)
[2019-11-27 07:08] LABS: PLATELET COUNT 456 10x3/uL (130-400)
[2019-11-27 07:32] LABS: ALBUMIN 1.9 g/dL (3.4-5.0); ALKALINE PHOSPHATASE 70 U/L (30-120); BILIRUBIN - TOTAL 1.09 mg/dL (0.2-1.3); CALC OSMOLALITY 275 mosm/kg (275-300); CALCIUM 8.9 mg/dL (8.5-10.1); CARBON DIOXIDE 28.7 mmol/L (21.0-32.0); CHLORIDE - SERUM 101 mmol/L (98-107); CREATININE - SERUM 0.8 mg/dL (0.6-1.3); GLUCOSE 116 mg/dL (74-106); MAGNESIUM - SERUM 2.2 mg/dL (1.8-2.4); PHOSPHOROUS 2.9 mg/dL (2.5-4.9); POTASSIUM - SERUM 3.9 mmol/L (3.5-5.1); PROTEIN - SERUM 6.2 g/dL (6.4-8.2); SODIUM 137 mmol/L (136-145); UREA NITROGEN 14 mg/dL (7-18); eGFR NON AFRICAN AMERICAN > 90 mL/min (90-120)
[2019-11-27 07:33] LABS: ALT (SGPT) 41 U/L (10-68)
[2019-11-27 08:00] VITALS: BP 152/79
--- NOTE | 2019-11-27 08:00 | NUR ---
PT RESTING IN BED WITH EYES CLOSED. IV LOCATED TO LEFT AC RUNNING PROCAL @ 125ML/HR. NG TUBE LOCATED TO LEFT NARE RUNNING AT LOW IS. NO CURRENT S/S OF DISTRESS AT THIS TIME, WILL CONT TO MONITOR.
--- NOTE | 2019-11-27 10:50 | NUR ---
700ML OF DARK GREEN EMESIS. ADMINISTERED ZOPHRAN PER DRS ORDERS.
[2019-11-27 12:00] VITALS: BP 155/92
--- NOTE | 2019-11-27 15:26 | NUR ---
PT PULLED OUT NG TUBE, SPOKE WITH CHIRAG ALEMAN ABOUT REPLACING HE INFORMED ME TO CHECK WITH AND LET HIM MAKE THAT CALLED. SPOKE WITH WILBERT WHO TOLD ME TO LEAVE IT OUT.
[2019-11-27 17:25] VITALS: BP 154/93
[2019-11-27 20:00] VITALS: BP 150/91
--- NOTE | 2019-11-27 20:00 | NUR ---
EMPTIED COLOSTOMY 400 CC'S DARK GREEN FLUID. LEFT AC IV CAME OUT CATHETER INTACT. BLED ONTO BEDDING. CLEANED UP PT AND CHANGED BED AND GOWN. RESITE IV TO RIGHT AC 22 G. RESUMED IV FLUIDS. NO OTHER NEEDS. WILL REASSESS AND CONTINUE TO MONITOR.
[2019-11-28] VITALS: BP 150/88
[2019-11-28 04:00] VITALS: BP 132/89
[2019-11-28 06:45] LABS: ALBUMIN 1.9 g/dL (3.4-5.0); ALKALINE PHOSPHATASE 75 U/L (30-120); BILIRUBIN - TOTAL 0.98 mg/dL (0.2-1.3); CALCIUM 8.9 mg/dL (8.5-10.1); CARBON DIOXIDE 27.1 mmol/L (21.0-32.0); CHLORIDE - SERUM 101 mmol/L (98-107); CREATININE - SERUM 0.9 mg/dL (0.6-1.3); GLUCOSE 108 mg/dL (74-106); MAGNESIUM - SERUM 2.3 mg/dL (1.8-2.4); PHOSPHOROUS 3.3 mg/dL (2.5-4.9); POTASSIUM - SERUM 3.9 mmol/L (3.5-5.1); PROTEIN - SERUM 6.2 g/dL (6.4-8.2); SODIUM 134 mmol/L (136-145); eGFR NON AFRICAN AMERICAN > 90 mL/min (90-120)
[2019-11-28 06:46] LABS: ALT (SGPT) 54 U/L (10-68); CALC OSMOLALITY 271 mosm/kg (275-300); UREA NITROGEN 20 mg/dL (7-18)
[2019-11-28 07:06] LABS: BASOPHILS 0.6 % (0-2); EOSINOPHILS 1.6 % (0-7); HEMATOCRIT 36.5 % (42.0-54.0); HEMOGLOBIN 12.2 g/dL (13.5-17.5); IMMATURE GRANULOCYTES 2.1 % (0-5); LYMPHOCYTES 9.2 % (15-50); MCHC 33.4 g/dL (31.0-37.0); MCV 89.7 fL (80.0-100.0); MEAN PLATELET VOLUME 9.4 fL (7.4-10.4); MONOCYTES 4.9 % (2-11); NEUTROPHILS 81.6 % (40-80); PLATELET COUNT 475 10x3/uL (130-400); RBC 4.07 10x6/uL (4.20-6.10); RDW 12.3 % (11.5-14.5); WBC 14.1 10x3/uL (4.8-10.8)
[2019-11-28 07:59] VITALS: BP 135/81
--- NOTE | 2019-11-28 08:29 | NUR ---
HE IS AWAKE, TAKING. BILATERAL EVANGELISTA'S, MIDLINE SURGICAL INCISION. HIS OSTOMY HAS LIQUID STOOL IN IT. THE CALL LIGHT IS WITHIN REACH.
[2019-11-28 12:12] VITALS: BP 149/93
[2019-11-28 16:21] VITALS: BP 149/92
[2019-11-28 20:00] VITALS: BP 147/92
--- NOTE | 2019-11-28 22:15 | NUR ---
PT C/O ABDOMINAL PAIN 11/30. GAVE DEMEROL 12.5 MG AND ATIVAN 1 MG IV PUSH. CHANGED OUT COLOSTOMY BAG. PROVIDED TEACHING ON COLOSTOMY CHANGING AND CARE. CHANGED DRESSING TO LEFT EVANGELISTA DRAIN AND LOWER ABDOMINAL INCISION. NO OTHER NEEDS. WILL CONTINUE TO MONITOR.
[2019-11-29] VITALS: BP 137/88
[2019-11-29 04:00] VITALS: BP 150/90
[2019-11-29 05:18] LABS: ALKALINE PHOSPHATASE 73 U/L (30-120); ALT (SGPT) 53 U/L (10-68); BILIRUBIN - TOTAL 0.82 mg/dL (0.2-1.3); CALC OSMOLALITY 267 mosm/kg (275-300); CALCIUM 8.5 mg/dL (8.5-10.1); CARBON DIOXIDE 26.1 mmol/L (21.0-32.0); CHLORIDE - SERUM 99 mmol/L (98-107); GLUCOSE 114 mg/dL (74-106); MAGNESIUM - SERUM 2.1 mg/dL (1.8-2.4); PHOSPHOROUS 2.9 mg/dL (2.5-4.9); POTASSIUM - SERUM 4.1 mmol/L (3.5-5.1); SODIUM 133 mmol/L (136-145); UREA NITROGEN 16 mg/dL (7-18); eGFR NON AFRICAN AMERICAN 87 mL/min (90-120)
[2019-11-29 05:34] LABS: BASOPHILS 0.3 % (0-2); EOSINOPHILS 1.8 % (0-7); HEMATOCRIT 32.4 % (42.0-54.0); HEMOGLOBIN 10.9 g/dL (13.5-17.5); IMMATURE GRANULOCYTES 2.6 % (0-5); LYMPHOCYTES 10.9 % (15-50); MCH 29.5 pg (26.0-34.0); MCHC 33.6 g/dL (31.0-37.0); MCV 87.8 fL (80.0-100.0); MEAN PLATELET VOLUME 9.1 fL (7.4-10.4); MONOCYTES 5.8 % (2-11); NEUTROPHILS 78.6 % (40-80); PLATELET COUNT 443 10x3/uL (130-400); RBC 3.69 10x6/uL (4.20-6.10); RDW 12.1 % (11.5-14.5); WBC 11.3 10x3/uL (4.8-10.8)
[2019-11-29 08:25] VITALS: BP 146/90
--- NOTE | 2019-11-29 10:30 | NUR ---
WAITING FOR PT TO WALK HIM WANTING DEMEROL BEFORE HE GETS UP. BILATERAL EVANGELISTA'S, OSTOMY PUTTING OUT GREEN LIQUID.
[2019-11-29 12:17] VITALS: BP 137/92
--- NOTE | 2019-11-29 14:38 | NUR ---
Nutrition follow-up: Pt pulled out NGT; not replaced at this time per surgeon Diet advanced to full liquids and PO intake ~25% of meals Labs reviewed Wt: 236# Ostomy working ProcalAmine PPN @ 125 ml/hr Intralipids 250 ml 20% q 48 hours RDN following.
--- NOTE | 2019-11-29 15:20 | MORECARE ---
CASE MANAGEMENT DISCHARGE SUMMARY PATIENT: JOLENE BIANCHI UNIT: [id number] ADM DATE: 11/18/19 AGE: 44 : 77 SEX: M ROOM/BED: D.2228 AUTHOR: LIBAN YOUNG PHYSICIAN: REFERRING PHYSICIAN: MARIEL BEDOYA MD DATE OF SERVICE: 11/29/19 Discharge Plan Patient Name: JOLENE BIANCHI [facility] : 1975 Planned Disposition: Home Anticipated Discharge Date: Discharge Date: Expected LOS: Initial Reviewer: [email or web address] Initial Review Date: 11/25/2019 Generated: 11/29/19 4:19 pm Comments DCP- Discharge Planning Updated by [email or web address]: Cally Knapp on 11/25/19 9:[address] Patient Name: JOLENE BIANCHI Admission Status: ER Accout number: [id number] Admission Date: 11-18-2019 : 1975 Admission Diagnosis:UNSPECIFIED ABDOMINAL PAIN Attending: ELOINA BEDOYA Current LOS: 7 Anticipated DC Date: Planned Disposition: Home Primary Insurance: [employer] EXCHANGE Discharge Planning Comments: CM met with patient at bedside after explaining CM role and obtaining verbal consent. CM discussed availability / needs of home health, REHAB and medical equipment. PATIENT DENIES NEED FOR HH OR REHAB. HE WILL NEED COLOSTOMY SUPPLIES. KATIE SIGNED FOR NO PREFERENCE FOR DME COMPANY. CM WILL FOLLOW AND ASSIST NEEDED. Flat Drier: Cally Knapp DCPIA - Discharge Planning Initial Assessment Updated by [id number]: Cally Knapp on 11/25/19 10:22 am * Is the patient Alert and Oriented? No * PCP AURELIANO * [facility] * Preadmission Environment Home Alone * ADLs Independent * Community resources currently utilized None * Can the patient safely return to the preadmission environment? Yes * Has this patient been hospitalized within the prior 30 days at any hospital? No External Providers External Provider: OTHER-OTHER Next Contact Date: Service Request Date: Service Type: Resolution: Reviewer: Comments: Coverage Notice Reviewer: [id number] - Claly Knapp Notice Issued Date-Time: 11/25/2019 10:37 Notice Type: Patient Choice Letter Notice Delivered To: Relationship to Patient: Bagging Machine Operator Name: Delivery Method: HAND - Hand Delivered Harriett Days: Prior Verbal Notification: Recipient Understood Notice: Yes Recipient Signature: Yes Med Rec Note Co-signed by Attending: Coverage Notice Comment: [facility] FOR OSTOMY SUPPLIES Last DP export: 11/25/19 9:30 am Patient Name: JOLENE BIANCHI Page [id number] at 1520 All edits/amendments must be made on the electronic document DICTATION DATE: 11/29/19 152 MEASURING MACHINE OPERATOR: CHASE 11/29/19 1520 RPT#: [id number] DC DATE: STATUS: ADM IN [facility] [address] [place] [address] END OF REPORT
[2019-11-29 16:59] VITALS: BP 134/87
[2019-11-29 20:38] VITALS: BP 148/84
--- NOTE | 2019-11-29 20:39 | NUR ---
REC'D WALKING ROUNDS CHGE OF SHIFT IN BED EYES CLOSED RESP. DEEP AND EVENLYING ON RIGHT SIDE. WILL CONTINUE TO MONITOR FOR ANY CHGES AND FOLLOW CURRENT PLAN OF CARE.
[2019-11-30] VITALS: BP 133/84
--- NOTE | 2019-11-30 02:01 | NUR ---
2114) WITH ANOTHER PATIENT DEMANDING NURSE GET HERE NOW. CALLED FAMILY STATING CAN'T GET ANY HELP CALLED HOUSESUPERVISOObdulia NORWOOD RN.PRIOR TO ENTERING ROOM.SPOUSE AND FATHER CALLED USING VERY FOUL LANGUAGE STATING NOW.ON ENTERING ROOM ROOM STATES NEEDS COLOSTOMY BAG EMPTIED.STATES GOING HOME IN AM.ASKED IF HAVE BEEN PARTICIPATING IN CARE/EMPTYING OF COLOSTOMY STATES NO. ASKED IF SOMEONE GOING TO BE AVAILABLE TO ASSIST YOU IN COLOSTOMY CARE. STATES NO SAYS I USE TO HAVE TO HELP MY DAD WITH HIS. REFUSED TO HAVE ENTIRE COLOSTOMY CHGED. SAYS DIDN'T SAY WAS LEAKING STATES NEEDS EMPTING.
[2019-11-30 04:48] VITALS: BP 133/81
[2019-11-30 08:14] LABS: BASOPHILS 0.3 % (0-2); EOSINOPHILS 1.7 % (0-7); HEMATOCRIT 35.7 % (42.0-54.0); HEMOGLOBIN 11.9 g/dL (13.5-17.5); LYMPHOCYTES 11.4 % (15-50); MCH 29.8 pg (26.0-34.0); MCHC 33.3 g/dL (31.0-37.0); MCV 89.3 fL (80.0-100.0); MEAN PLATELET VOLUME 9.3 fL (7.4-10.4); MONOCYTES 7.1 % (2-11); NEUTROPHILS 77.5 % (40-80); PLATELET COUNT 545 10x3/uL (130-400); RDW 12.3 % (11.5-14.5)
[2019-11-30 08:22] LABS: ALBUMIN 2.1 g/dL (3.4-5.0); ALKALINE PHOSPHATASE 75 U/L (30-120); ALT (SGPT) 61 U/L (10-68); BILIRUBIN - TOTAL 0.59 mg/dL (0.2-1.3); CARBON DIOXIDE 27.7 mmol/L (21.0-32.0); CHLORIDE - SERUM 103 mmol/L (98-107); CREATININE - SERUM 1.1 mg/dL (0.6-1.3); GLUCOSE 95 mg/dL (74-106); PROTEIN - SERUM 6.5 g/dL (6.4-8.2); SODIUM 138 mmol/L (136-145); eGFR NON AFRICAN AMERICAN 78 mL/min (90-120)
[2019-11-30 08:26] VITALS: BP 126/76
[2019-11-30 08:28] LABS: CALC OSMOLALITY 274 mosm/kg (275-300); UREA NITROGEN 9 mg/dL (7-18)
--- NOTE | 2019-11-30 10:50 | NUR ---
PATIENT SET UP TO BRUSH TEETH.
[2019-11-30 12:47] VITALS: BP 120/81
[2019-11-30 16:00] VITALS: BP 136/81
--- NOTE | 2019-11-30 17:16 | MORECARE ---
CASE MANAGEMENT DISCHARGE SUMMARY PATIENT: JOLENE BIANCHI UNIT: [id number] ADM DATE: 11/18/19 AGE: 44 : 77 SEX: M ROOM/BED: D.2228 AUTHOR: LIBAN YOUNG PHYSICIAN: REFERRING PHYSICIAN: MARIEL BEDOYA MD DATE OF SERVICE: 11/30/19 Discharge Plan Patient Name: JOLENE BIANCHI [facility] [facility] 1975 Planned Disposition: Home Anticipated Discharge Date: Discharge Date: Expected LOS: Initial Reviewer: [id number] Initial Review Date: 11/25/2019 Generated: 11/30/19 6:15 pm Comments DCP- Discharge Planning Updated by [id number]: Cally Knapp on 11/25/19 9:[address] Patient Name: JOLENE BIANCHI Admission Status: ER Accout number: [id number] Admission Date: 11-18-2019 : 1975 Admission Diagnosis:UNSPECIFIED ABDOMINAL PAIN Attending: ELOINA BEDOYA Current LOS: 7 Anticipated DC Date: Planned Disposition: Home Primary Insurance: [employer] EXCHANGE Discharge Planning Comments: CM met with patient at bedside after explaining CM role and obtaining verbal consent. CM discussed availability / needs of home health, REHAB and medical equipment. PATIENT DENIES NEED FOR HH OR REHAB. HE WILL NEED COLOSTOMY SUPPLIES. KATIE SIGNED FOR NO PREFERENCE FOR DME COMPANY. CM WILL FOLLOW AND ASSIST NEEDED. Water Reuse Program Manager: Cally Knapp DCPIA - Discharge Planning Initial Assessment Updated by [email or web address]: Cally Knapp on 11/25/19 10:22 am * Is the patient Alert and Oriented? No * PCP [facility] * Pharmacy [facility] * Preadmission Environment Home Alone * ADLs Independent * Community resources currently utilized None * Can the patient safely return to the preadmission environment? Yes * Has this patient been hospitalized within the prior 30 days at any hospital? No External Providers External Provider: [facility] Next Contact Date: Service Request Date: Service Type: Resolution: Reviewer: Comments: Coverage Notice Reviewer: [id number] Madonna Knapp Notice Issued Date-Time: 11/25/2019 10:37 Notice Type: Patient Choice Letter Notice Delivered To: Relationship to Patient: Statistical Technician Name: Delivery Method: HAND - Hand Delivered Harriett Days: Prior Verbal Notification: Recipient Understood Notice: Yes Recipient Signature: Yes Med Rec Note Co-signed by Attending: Coverage Notice Comment: [facility] FOR OSTOMY SUPPLIES. [facility] Last DP export: 11/29/19 2:20 pm Patient Name: JOLENE BIANCHI Page [phone] at 1716 All edits/amendments must be made on the electronic document DICTATION DATE: 11/30/191714 WILDERNESS GUIDE: CHASE 11/30/191714 RPT#: [id number] DC DATE: STATUS: ADM IN [facility] [address] [place] [address] END OF REPORT
[2019-11-30 21:15] VITALS: BP 131/75
[2019-12-01 00:32] VITALS: BP 119/80
--- NOTE | 2019-12-01 01:20 | NUR ---
PT RESTING IN BED. EYES CLOSED. NO SIGNS OF DISTRESS. BREATHING EVEN AND UNLABORED. IV SITE LT FA DRESSING CLEAN DRY AND INTACT. NO SIGNS OF INFECTION OR INFULTRATION. ABD INCISIONS CLEAN DRY AND INTACT. LT LOWER ABD COLOSTOMY CLEAN DRY AND INTACT. EVANGELISTA DRAIN RT ABD. WILL CONTINUE PLAN OF CARE. CALL LIGHT IN REACH. BED LOWERED AND LOCKED. BED RAILS UPX2.
--- NOTE | 2019-12-01 02:51 | NUR ---
I have reviewed this patient and I concur with the Shift Assessment completed by the Licensed Practical Nurse today this shift.
[2019-12-01 06:22] VITALS: BP 128/86
[2019-12-01 06:30] LABS: BASOPHILS 0.2 % (0-2); EOSINOPHILS 0.9 % (0-7); HEMOGLOBIN 12.2 g/dL (13.5-17.5); IMMATURE GRANULOCYTES 2.2 % (0-5); LYMPHOCYTES 12.7 % (15-50); MCH 29.6 pg (26.0-34.0); MCV 89.8 fL (80.0-100.0); MEAN PLATELET VOLUME 9.2 fL (7.4-10.4); MONOCYTES 7.1 % (2-11); NEUTROPHILS 76.9 % (40-80); PLATELET COUNT 597 10x3/uL (130-400); RBC 4.12 10x6/uL (4.20-6.10); RDW 12.3 % (11.5-14.5); WBC 10.2 10x3/uL (4.8-10.8)
[2019-12-01 06:52] LABS: ALBUMIN 2.2 g/dL (3.4-5.0); ALKALINE PHOSPHATASE 72 U/L (30-120); ALT (SGPT) 74 U/L (10-68); BILIRUBIN - TOTAL 0.59 mg/dL (0.2-1.3); CALC OSMOLALITY 272 mosm/kg (275-300); CALCIUM 9.6 mg/dL (8.5-10.1); CARBON DIOXIDE 29.7 mmol/L (21.0-32.0); CHLORIDE - SERUM 101 mmol/L (98-107); CREATININE - SERUM 1.1 mg/dL (0.6-1.3); GLUCOSE 100 mg/dL (74-106); PHOSPHOROUS 3.7 mg/dL (2.5-4.9); POTASSIUM - SERUM 3.9 mmol/L (3.5-5.1); PROTEIN - SERUM 6.9 g/dL (6.4-8.2); SODIUM 137 mmol/L (136-145); UREA NITROGEN 10 mg/dL (7-18); eGFR NON AFRICAN AMERICAN 78 mL/min (90-120)
--- NOTE | 2019-12-01 07:30 | NUR ---
REC'D IN WALKING ROUNDS AWAKE AND ALERT. RESP EVEN AND UNLABORED WITH NO DISTRESS NOTED OR VOICED. ASSESSMENT COMPLETED. NO C/O NOTED AT THIS TIME. C/L IN REACH AT BEDSIDE.
--- NOTE | 2019-12-01 07:30 | NUR ---
LYING IN BED,WITHOUT DISTRESS.TIFFANY AT BESIDE
[2019-12-01 08:17] VITALS: BP 127/90
[2019-12-01 13:05] VITALS: BP 139/75
[2019-12-01] MEDS ORDERED: DIFLUCAN100 MG PO (13:09)
[2019-12-01] MEDS ORDERED: HYDROCODON-ACE1 EA10 PO (13:09)
[2019-12-01] MEDS ORDERED: OMNICEF300 MG PO (13:09)
--- NOTE | 2019-12-01 13:42 | MORECARE ---
CASE MANAGEMENT DISCHARGE SUMMARY PATIENT: JOLENE BIANCHI UNIT: [id number] ADM DATE: 11/18/19 AGE: 44 : 77 SEX: M ROOM/BED: D.2228 AUTHOR: HANNAHDOC PHYSICIAN: REFERRING PHYSICIAN: MARIEL BEDOYA MD DATE OF SERVICE: 12/01/19 Discharge Plan Patient Name: JOLENE BIANCHI Facility: [facility]:[place] : 1975 Planned Disposition: Home Anticipated Discharge Date: Discharge Date: Expected LOS: Initial Reviewer: [id number] Initial Review Date: 11/25/2019 Generated: 12/01/19 2:42 pm Comments DCP- Discharge Planning Updated by [id number]: Cally Knapp on 12/01/19 12:[address] Patient Name: JOLENE BIANCHI Admission Status: ER Accout number: [id number] Admission Date: 11-18-2019 : 1975 Admission Diagnosis:UNSPECIFIED ABDOMINAL PAIN Attending: ELOINA BEDOYA Current LOS: 13 Anticipated DC Date: Planned Disposition: Home Primary Insurance: [employer] EXCHANGE Discharge Planning Comments: REFERRAL SENT TO [facility]. THEY WILL PROVIDE COLOSTOMY SUPPLIES TO PATIENT. I WILL FAX ORDER AND WOUND CONSULT BEFORE DISCHARGE. Ict Teacher: Cally Knapp DCP- Discharge Planning Updated by [id number]: Cally Knapp on 11/25/19 9:[address] Patient Name: JOLENE BIANCHI Admission Status: ER Accout number: [id number] Admission Date: 11-18-2019 : 1975 Admission Diagnosis:UNSPECIFIED ABDOMINAL PAIN Attending: ELOINA BEDOYA Current LOS: 7 Anticipated DC Date: Planned Disposition: Home Primary Insurance: [employer] EXCHANGE Discharge Planning Comments: CM met with patient at bedside after explaining CM role and obtaining verbal consent. CM discussed availability / needs of home health, REHAB and medical equipment. PATIENT DENIES NEED FOR HH OR REHAB. HE WILL NEED COLOSTOMY SUPPLIES. KATIE SIGNED FOR NO PREFERENCE FOR DME COMPANY. CM WILL FOLLOW AND ASSIST NEEDED. Ict Teacher: Cally Knapp DCPIA - Discharge Planning Initial Assessment Updated by [email or web address]: Cally Knapp on 11/25/19 10:22 am * Is the patient Alert and Oriented? No * PCP [facility] * [facility] * Preadmission Environment Home Alone * ADLs Independent * Community resources currently utilized None * Can the patient safely return to the preadmission environment? Yes * Has this patient been hospitalized within the prior 30 days at any hospital? No Coverage Notice Reviewer: [id number] Madonna Knapp Notice Issued Date-Time: 11/25/2019 10:37 Notice Type: Patient Choice Letter Notice Delivered To: Relationship to Patient: Darkroom Worker Name: Delivery Method: HAND - Hand Delivered Harriett Days: Prior Verbal Notification: Recipient Understood Notice: Yes Recipient Signature: Yes Med Rec Note Co-signed by Attending: Coverage Notice Comment: DME [facility] FOR OSTOMY SUPPLIES. [facility] Last DP export: 11/30/19 4:16 pm Patient Name: JOLENE BIANCHI Page [phone] at 1342 All edits/amendments must be made on the electronic document DICTATION DATE: 12/01/19 1342 MULTI PUNCH OPERATOR: CHASE 12/01/19 1342 RPT#: [id number] DC DATE: STATUS: ADM IN [facility] [address] [place] [address] END OF REPORT
--- NOTE | 2019-12-01 14:44 | NUR ---
LEFT ABD/COLOSTOMY: STOMA RED AND MOIST APPROX 1-2". INFO PROVIDED.
--- NOTE | 2019-12-01 16:58 | NUR ---
DC HOME WITH COLOSTOMY CARE AND INSTRUCTION ON HOW TO CHANGE BAG WAS GIVEN VOICE UNDERSTANDING AND RETURN DEMONSTRATION. IV DC. STABLE CONDITION UPON DEPARTURE.
--- NOTE | 2019-12-02 08:37 | MORECARE ---
CASE MANAGEMENT DISCHARGE SUMMARY PATIENT: JOLENE BIANCHI UNIT: [id number] ADM DATE: 11/18/19 AGE: 44 : 77 SEX: M ROOM/BED: D.2228 AUTHOR: HANNAHDOC PHYSICIAN: REFERRING PHYSICIAN: MARIEL BEDOYA MD DATE OF SERVICE: 12/02/19 Discharge Plan Patient Name: JOLENE BIANCHI Facility: [facility]:[place] : 1975 Planned Disposition: Home Anticipated Discharge Date: Discharge Date: 12/01/2019 Expected LOS: Initial Reviewer: [id number] Initial Review Date: 11/25/2019 Generated: 12/02/19 9:37 am Comments DCP- Discharge Planning Updated by [id number]: Cally Knapp on 12/01/19 12:[address] Patient Name: JOLENE BIANCHI Admission Status: ER Accout number: [id number] Admission Date: 11-18-2019 : 1975 Admission Diagnosis:UNSPECIFIED ABDOMINAL PAIN Attending: ELOINA BEDOYA Current LOS: 13 Anticipated DC Date: Planned Disposition: Home Primary Insurance: [employer] EXCHANGE Discharge Planning Comments: REFERRAL SENT TO [facility]. THEY WILL PROVIDE COLOSTOMY SUPPLIES TO PATIENT. I WILL FAX ORDER AND WOUND CONSULT BEFORE DISCHARGE. Plc Programmer: Cally Knapp DCP- Discharge Planning Updated by [id number]: Cally Knapp on 11/25/19 9:[address] Patient Name: JOLENE BIANCHI Admission Status: ER Accout number: [id number] Admission Date: 11-18-2019 : 1975 Admission Diagnosis:UNSPECIFIED ABDOMINAL PAIN Attending: ELOINA BEDOYA Current LOS: 7 Anticipated DC Date: Planned Disposition: Home Primary Insurance: [employer] EXCHANGE Discharge Planning Comments: CM met with patient at bedside after explaining CM role and obtaining verbal consent. CM discussed availability / needs of home health, REHAB and medical equipment. PATIENT DENIES NEED FOR HH OR REHAB. HE WILL NEED COLOSTOMY SUPPLIES. KATIE SIGNED FOR NO PREFERENCE FOR DME COMPANY. CM WILL FOLLOW AND ASSIST NEEDED. Plc Programmer: Cally Knapp DCPIA - Discharge Planning Initial Assessment Updated by [id number]: Cally Knapp on 11/25/19 10:22 am * Is the patient Alert and Oriented? No * PCP [facility] * [facility] * Preadmission Environment Home Alone * ADLs Independent * Community resources currently utilized None * Can the patient safely return to the preadmission environment? Yes * Has this patient been hospitalized within the prior 30 days at any hospital? No Coverage Notice Reviewer: [id number] Madonna Knapp Notice Issued Date-Time: 11/25/2019 10:37 Notice Type: Patient Choice Letter Notice Delivered To: Relationship to Patient: Flagger Name: Delivery Method: HAND - Hand Delivered Harriett Days: Prior Verbal Notification: Recipient Understood Notice: Yes Recipient Signature: Yes Med Rec Note Co-signed by Attending: Coverage Notice Comment: DME [facility] FOR OSTOMY SUPPLIES. [facility] Last DP export: 12/01/19 12:42 p Patient Name: JOLENE BIANCHI Page [phone] at 0837 All edits/amendments must be made on the electronic document DICTATION DATE: 12/02/19 0837 CLAIMS ACCOUNT MANAGER: CHASE 12/02/19 0837 RPT#: [id number] DC DATE:12/01/19 STATUS: DIS IN [facility] [address] [place] [address] END OF REPORT
== END 2019-12-01 17:05 | disposition home health service (06) | DRG 853 ==
LOC: D.ER 20:41 → D.MS 22:49
PROVIDERS: Family Medicine; Surgery; ADMIT Emergency Medicine; ATTEND Emergency Medicine
PROC: 0DTN0ZZ Resection of Sigmoid Colon, Open Approach (ICD-10-PCS; principal; 2019-11-23 10:15)
PROC: 0DJ08ZZ Inspection of Upper Intestinal Tract, Via Natural or Artificial Opening Endoscopic (ICD-10-PCS; 2019-11-23 10:15)
DX: A41.9 Sepsis, unspecified organism (principal); K65.1 Peritoneal abscess; K65.9 Peritonitis, unspecified; K57.80 Diverticulitis of intestine, part unspecified, with perforation and abscess without bleeding; I10 Essential (primary) hypertension; E87.6 Hypokalemia; G89.29 Other chronic pain; M51.26 Other intervertebral disc displacement, lumbar region; R51 Headache

== ENCOUNTER 2019-12-05 22:24 | Inpatient (IN) | payer BC ==
[~2019-12-05] VITALS: Ht 185.4 cm; Wt 97.4 kg
[~2019-12-05 22:24] MED LIST changes: +DIFLUCAN100 MG PO; +HYDROCODON-ACE1 EA10 PO; +OMNICEF300 MG PO
[2019-12-05] MEDS ORDERED: BENICAR20 MG PO (22:38)
[2019-12-05 22:52] LABS: BILIRUBIN NEGATIVE (NEGATIVE); GLUCOSE NEGATIVE (NEGATIVE); KETONE NEGATIVE (NEGATIVE); NITRITE NEGATIVE (NEGATIVE); SPECIFIC GRAVITY 1.015 (1.005-1.020); UROBILINOGEN NORMAL (NORMAL)
[2019-12-05 23:04] LABS: BASOPHILS 0.1 % (0-2); EOSINOPHILS 0.6 % (0-7); HEMATOCRIT 38.6 % (42.0-54.0); HEMOGLOBIN 12.8 g/dL (13.5-17.5); IMMATURE GRANULOCYTES 1.1 % (0-5); LYMPHOCYTES 11.4 % (15-50); MCH 29.6 pg (26.0-34.0); MCHC 33.2 g/dL (31.0-37.0); MCV 89.1 fL (80.0-100.0); MEAN PLATELET VOLUME 8.8 fL (7.4-10.4); MONOCYTES 5.9 % (2-11); NEUTROPHILS 80.9 % (40-80); PLATELET COUNT 504 10x3/uL (130-400); RBC 4.33 10x6/uL (4.20-6.10); RDW 12.3 % (11.5-14.5)
[2019-12-05 23:13] LABS: ANION GAP 7.7 mmol/L (8-16); CALCIUM 8.9 mg/dL (8.5-10.1); CARBON DIOXIDE 29.3 mmol/L (21.0-32.0); CREATININE - SERUM 1.2 mg/dL (0.6-1.3)
[2019-12-05 23:18] LABS: ALBUMIN 2.8 g/dL (3.4-5.0); BILIRUBIN - TOTAL 0.53 mg/dL (0.2-1.3); PROTEIN - SERUM 6.9 g/dL (6.4-8.2)
[2019-12-06 03:14] VITALS: BP 99/63
[2019-12-06 03:18] LABS: BASOPHILS 0.1 % (0-2); EOSINOPHILS 0.5 % (0-7); HEMOGLOBIN 12.1 g/dL (13.5-17.5); IMMATURE GRANULOCYTES 1.4 % (0-5); LYMPHOCYTES 9.3 % (15-50); MCH 29.5 pg (26.0-34.0); MCHC 32.7 g/dL (31.0-37.0); MCV 90.2 fL (80.0-100.0); MEAN PLATELET VOLUME 9.1 fL (7.4-10.4); MONOCYTES 6.8 % (2-11); NEUTROPHILS 81.9 % (40-80); PLATELET COUNT 479 10x3/uL (130-400); RDW 12.5 % (11.5-14.5); WBC 15.2 10x3/uL (4.8-10.8)
--- NOTE | 2019-12-06 03:50 | NUR ---
RECEIVED PT TO FLOOR FROM ER VIA STRETCHER. ACCOMPANIED BY DAUGHTER. CHIEF COMPLAINT LEFT LOWER ABDOMINAL PAIN. PAIN MED WAS GIVEN IN ER, RATES PAIN 2/10 NOW. REVIEWED HOME MEDS AND HISTORY. COMPLETE ASSESSMENT PER FLOWSHEET. YL IV PB RUNNING NOW. PROVIDED INCENTIVE SPIROMETER AND ENCOURAGED USE. PT DEMONSTRATED HE KNOWS HOW TO USE. NO NEEDS AT THIS TIME. WILL CONTINUE TO MONITOR.
[2019-12-06 04:00] VITALS: BP 91/55
[2019-12-06] MEDS ORDERED: KLONOPIN1 MG PO (04:00)
[2019-12-06 04:14] VITALS: BMI 27.9
--- NOTE | 2019-12-06 07:05 | NUR ---
RESTING IN BED WITH EYES CLOSED. NO S/S OF ACUTE DISTRESS NOTED. COLOSTOMY PRESENT. IV TO RIGHT FOREARM, D5 NS @ 150ML/HR. SITE PATENT WITHOUT REDNESS OR SWELLING. CALL LIGHT IN REACH. WILL CONTINUE TO MONITOR.
[2019-12-06 08:43] VITALS: BP 94/55
--- NOTE | 2019-12-06 10:10 | NUR ---
PT C/O PAIN 11/30. GAVE DEMEROL FOR PAIN IV PUSH.
[2019-12-06 12:49] VITALS: BP 108/58
[2019-12-06 14:07] VITALS: BMI 27.9
[2019-12-06 14:52] LABS: % SATURATION 7 % (15-55); IRON 16 ug/dl (35-150); TOTAL IRON BIND CAPACITY 218 ug/dl (260-445); UNSAT IRON BIND CAPACITY 202 ug/dl (150-375)
--- NOTE | 2019-12-06 15:09 | NUR ---
I have reviewed this patient and I concur with the Shift Assessment completed by the Licensed Practical Nurse today this shift.
[2019-12-06 15:13] LABS: APTT 34.5 SECONDS (22.8-39.4); INR 1.13 (0.85-1.17); PROTIME 14.5 SECONDS (11.6-15.0)
[2019-12-06 15:20] LABS: MAGNESIUM - SERUM 2.1 mg/dL (1.8-2.4)
--- NOTE | 2019-12-06 15:30 | NUR ---
CHANGED COLOSTOMY BAG AND COLLECTED STOOL SPECIMEN.
--- NOTE | 2019-12-06 15:39 | NUR ---
PT C/O PAIN 08/30. GAVE DEMEROL FOR PAIN IV PUSH.
[2019-12-06 17:00] VITALS: Ht 185.4 cm; Wt 97.4 kg
[2019-12-06 17:25] VITALS: BP 122/66
--- NOTE | 2019-12-06 18:33 | NUR ---
ALERT AND ORIENTED. CHANGED OUT COLOSTOMY BAG. NO C/O PAIN. NO S/S OF ACUTE DISTRESS NOTED. DENIES ANY NEEDS AT THIS TIME. CALL LIGHT IN REACH. WILL CONTINUE TO MONITOR.
--- NOTE | 2019-12-06 19:45 | NUR ---
A&O X 4. SUPINE IN BED. REPORTS PAIN OF 3/10. REQUESTS KLONOPIN WITH MEDS LATER. NO FURTHER NEEDS VOICED AT THIS TIME, CTM.
[2019-12-06 20:00] VITALS: BP 123/66
--- NOTE | 2019-12-06 22:59 | NUR ---
I have reviewed this patient and I concur with the Shift Assessment completed by the Licensed Practical Nurse today this shift.
[2019-12-07] VITALS: BP 129/73
[2019-12-07 04:00] VITALS: BP 127/76
[2019-12-07 04:49] LABS: BASOPHILS 0.2 % (0-2); EOSINOPHILS 1.4 % (0-7); HEMATOCRIT 31.2 % (42.0-54.0); IMMATURE GRANULOCYTES 1.6 % (0-5); LYMPHOCYTES 8.1 % (15-50); MCHC 32.1 g/dL (31.0-37.0); MCV 90.4 fL (80.0-100.0); MONOCYTES 8.2 % (2-11); NEUTROPHILS 80.5 % (40-80); RBC 3.45 10x6/uL (4.20-6.10); RDW 12.7 % (11.5-14.5)
[2019-12-07 05:00] LABS: PLATELET COUNT 339 10x3/uL (130-400); WBC 8.8 10x3/uL (4.8-10.8)
[2019-12-07 05:11] LABS: ALBUMIN 2.2 g/dL (3.4-5.0); ALKALINE PHOSPHATASE 42 U/L (30-120); BILIRUBIN - TOTAL 0.64 mg/dL (0.2-1.3); CALCIUM 8.3 mg/dL (8.5-10.1); CARBON DIOXIDE 29.5 mmol/L (21.0-32.0); CHLORIDE - SERUM 104 mmol/L (98-107); CREATININE - SERUM 1.1 mg/dL (0.6-1.3); GLUCOSE 91 mg/dL (74-106); MAGNESIUM - SERUM 1.8 mg/dL (1.8-2.4); PROTEIN - SERUM 5.7 g/dL (6.4-8.2); SODIUM 138 mmol/L (136-145); eGFR NON AFRICAN AMERICAN 78 mL/min (90-120)
[2019-12-07 05:13] LABS: ALT (SGPT) 40 U/L (10-68); CALC OSMOLALITY 274 mosm/kg (275-300); UREA NITROGEN 11 mg/dL (7-18)
--- NOTE | 2019-12-07 07:43 | NUR ---
PATIENT AWAKE AND ORIENTEDX4. RESTING QUIETLY IN BED. RESPIRATIONS EVEN NON LABORED. NO DISTRESS NOTED. ORAL TEMP 96.8. DENIES FURTHER NEEDS. CALL LIGHT IN REACH. WILL CONTINUE TO MONITOR FOR SAFETY.
[2019-12-07 09:30] VITALS: BP 126/69
--- NOTE | 2019-12-07 11:23 | NUR ---
PATIENT TOLERATED MORNING MEDS WELL NO COMPLAINTS. TOOK LEONARDO OUT. SEROUS DRAINAGE PRESENT FROM INCISION. PRESSURE DRESSING PUT ON SITE. DRAINAGE STOPPED. WILL CONTINUE TO MONITOR IF ANY DRAINAGE IS PRESENT AND SAFETY.
[2019-12-07] MEDS ORDERED: FLAGYL500 MG PO (12:51)
[2019-12-07] MEDS ORDERED: LEVOFLOXACIN500 MG PO (12:51)
--- NOTE | 2019-12-07 13:03 | NUR ---
I have reviewed this patient and I concur with the Shift Assessment completed by the Licensed Practical Nurse today this shift.
--- NOTE | 2019-12-07 14:31 | MORECARE ---
CASE MANAGEMENT DISCHARGE SUMMARY PATIENT: JOLENE BIANCHI UNIT: [id number] ADM DATE: 12/06/19 AGE: 44 : 77 SEX: M ROOM/BED: D.2227 AUTHOR: LIBAN YOUNG PHYSICIAN: REFERRING PHYSICIAN: PAULO WHITEHEAD MD DATE OF SERVICE: 12/07/19 Discharge Plan Patient Name: JOLENE BIANCHI [facility] : 1975 Planned Disposition: Anticipated Discharge Date: Discharge Date: Expected LOS: Initial Reviewer: [id number] Initial Review Date: 12/06/2019 Generated: 12/07/19 3:31 pm External Providers External Provider: [employer] Next Contact Date: Service Request Date: Service Type: Resolution: Reviewer: Comments: Patient Name: JOLENE BIANCHI Page [phone] at 1431 All edits/amendments must be made on the electronic document DICTATION DATE: 12/07/19 1431 FRONT END WEB DESIGNER: CHASE 12/07/19 1431 RPT#: [id number] DC DATE: STATUS: ADM IN [facility] [address] [place] [address] END OF REPORT
[2019-12-07 15:15] VITALS: BP 144/87
[2019-12-07 17:15] LABS: BASOPHILS 0.1 % (0-2); EOSINOPHILS 0.7 % (0-7); IMMATURE GRANULOCYTES 0.9 % (0-5); LYMPHOCYTES 4.6 % (15-50); MCH 29.6 pg (26.0-34.0); MCV 89.8 fL (80.0-100.0); MEAN PLATELET VOLUME 9.2 fL (7.4-10.4); MONOCYTES 4.8 % (2-11); NEUTROPHILS 88.9 % (40-80); PLATELET COUNT 368 10x3/uL (130-400); RDW 12.5 % (11.5-14.5); WBC 10.1 10x3/uL (4.8-10.8)
[2019-12-07 17:16] LABS: HEMATOCRIT 38.8 % (42.0-54.0); HEMOGLOBIN 12.8 g/dL (13.5-17.5); RBC 4.32 10x6/uL (4.20-6.10)
[2019-12-07 17:51] VITALS: BP 140/83
[2019-12-07 18:14] LABS: BILIRUBIN NEGATIVE (NEGATIVE); GLUCOSE NEGATIVE (NEGATIVE); KETONE NEGATIVE (NEGATIVE); NITRITE NEGATIVE (NEGATIVE); UROBILINOGEN NORMAL (NORMAL)
--- NOTE | 2019-12-07 18:48 | NUR ---
PATIENT IN BED WATCHING TV. ALERT AND ORIENTED. NO COMPLAINTS OF PAIN. NO S/S OF ACUTE DISTRESS. CALL IN REACH. WILL CONTINUE TO MONITOR FOR SAFETY.
--- NOTE | 2019-12-07 20:30 | NUR ---
A&O X 4. PT BURPED OSTOMY BAG. REPORTS PAIN OF 5/10, MOSTLY TO LLQ OF ABDOMEN AND MIDLINE INCISION. TEMP IS CURRENTLY 99.0F. WILL MONITOR CLOSELY.
[2019-12-07 21:55] VITALS: BP 144/87
[2019-12-08] VITALS: BP 123/65
[2019-12-08 04:00] VITALS: BP 126/81
--- NOTE | 2019-12-08 07:15 | NUR ---
REC'D IN BED AWAKE AND ALERT. RESP EVEN AND UNLABORED WITH NO DISTRESS NOTED. CAN EXPRESS NEEDS AND WANTS. NOC/O NOTED OR VOICED AT THIS TIME. TURN AND REPOSITION SELF AB ELIEL. ASSESSMENT COMPLETED. C/L IN REACH AT BEDSIDE.
[2019-12-08 07:44] LABS: BASOPHILS 0.1 % (0-2); EOSINOPHILS 0.1 % (0-7); HEMATOCRIT 34.6 % (42.0-54.0); HEMOGLOBIN 11.5 g/dL (13.5-17.5); IMMATURE GRANULOCYTES 0.5 % (0-5); LYMPHOCYTES 4.4 % (15-50); MCH 29.6 pg (26.0-34.0); MCHC 33.2 g/dL (31.0-37.0); MCV 89.2 fL (80.0-100.0); MEAN PLATELET VOLUME 9.1 fL (7.4-10.4); MONOCYTES 6.1 % (2-11); NEUTROPHILS 88.8 % (40-80); PLATELET COUNT 344 10x3/uL (130-400); RBC 3.88 10x6/uL (4.20-6.10); RDW 12.6 % (11.5-14.5); WBC 10.7 10x3/uL (4.8-10.8)
[2019-12-08 07:58] LABS: ALBUMIN 2.2 g/dL (3.4-5.0); ALKALINE PHOSPHATASE 61 U/L (30-120); ALT (SGPT) 31 U/L (10-68); BILIRUBIN - TOTAL 1.21 mg/dL (0.2-1.3); CALC OSMOLALITY 264 mosm/kg (275-300); CALCIUM 8.9 mg/dL (8.5-10.1); CARBON DIOXIDE 29.3 mmol/L (21.0-32.0); CHLORIDE - SERUM 99 mmol/L (98-107); CREATININE - SERUM 1.1 mg/dL (0.6-1.3); GLUCOSE 116 mg/dL (74-106); MAGNESIUM - SERUM 1.7 mg/dL (1.8-2.4); PHOSPHOROUS 2.9 mg/dL (2.5-4.9); POTASSIUM - SERUM 3.7 mmol/L (3.5-5.1); PROTEIN - SERUM 6.3 g/dL (6.4-8.2); SODIUM 133 mmol/L (136-145); eGFR NON AFRICAN AMERICAN 78 mL/min (90-120)
[2019-12-08 08:00] LABS: UREA NITROGEN 7 mg/dL (7-18)
--- NOTE | 2019-12-08 08:04 | NUR ---
I have reviewed this patient and I concur with the Shift Assessment completed by the Licensed Practical Nurse today this shift.
--- NOTE | 2019-12-08 08:44 | NUR ---
MEDICATED WTIH DEMEROL PER ORDERS FOR C/O FOOT PAIN RATING 6/10 ON PAIN SCALE. C/L IM REACH AT BEDSIDE.
[2019-12-08 09:05] VITALS: BP 132/81
[2019-12-08 12:34] VITALS: BP 128/86
--- NOTE | 2019-12-08 13:15 | NUR ---
I have reviewed this patient and I concur with the Shift Assessment completed by the Licensed Practical Nurse today this shift.
--- NOTE | 2019-12-08 14:00 | NUR ---
WOUND CARE GIVEN THIS TIME PER ORDERS. PT TOLERATED WELL. ALSO REMOVED 2 LEONARDO FOR RIGHT SIDE. C/L IN REACH AT BEDSIDE.
--- NOTE | 2019-12-08 14:19 | NUR ---
WAS MEDICATED WITH APAP 650 MG PER ORDERS FOR LOW GRADE TEMP OF 100.4
[2019-12-08 18:01] VITALS: BP 144/75
[2019-12-08 20:00] VITALS: BP 110/76
[2019-12-09] VITALS: BP 115/65
[2019-12-09 04:00] VITALS: BP 120/66
[2019-12-09 05:42] LABS: BASOPHILS 0 % (0-2); EOSINOPHILS 0 % (0-7); HEMATOCRIT 31.1 % (42.0-54.0); HEMOGLOBIN 10.1 g/dL (13.5-17.5); IMMATURE GRANULOCYTES 0.3 % (0-5); LYMPHOCYTES 2.9 % (15-50); MCH 28.9 pg (26.0-34.0); MCHC 32.5 g/dL (31.0-37.0); MCV 88.9 fL (80.0-100.0); MEAN PLATELET VOLUME 9.1 fL (7.4-10.4); MONOCYTES 4.5 % (2-11); NEUTROPHILS 92.3 % (40-80); RDW 12.7 % (11.5-14.5); WBC 9.6 10x3/uL (4.8-10.8)
[2019-12-09 05:47] LABS: PLATELET COUNT 273 10x3/uL (130-400)
[2019-12-09 06:25] LABS: ALBUMIN 2.1 g/dL (3.4-5.0); ALKALINE PHOSPHATASE 57 U/L (30-120); ALT (SGPT) 29 U/L (10-68); BILIRUBIN - TOTAL 0.54 mg/dL (0.2-1.3); CALCIUM 9.2 mg/dL (8.5-10.1); CARBON DIOXIDE 32.9 mmol/L (21.0-32.0); CHLORIDE - SERUM 99 mmol/L (98-107); CREATININE - SERUM 1.1 mg/dL (0.6-1.3); PHOSPHOROUS 2.8 mg/dL (2.5-4.9); POTASSIUM - SERUM 4.2 mmol/L (3.5-5.1); PROTEIN - SERUM 6.3 g/dL (6.4-8.2); SODIUM 134 mmol/L (136-145); eGFR NON AFRICAN AMERICAN 78 mL/min (90-120)
[2019-12-09 06:26] LABS: CALC OSMOLALITY 270 mosm/kg (275-300); GLUCOSE 177 mg/dL (74-106); UREA NITROGEN 9 mg/dL (7-18)
[2019-12-09 08:00] VITALS: BP 129/79
--- NOTE | 2019-12-09 10:42 | MORECARE ---
CASE MANAGEMENT DISCHARGE SUMMARY PATIENT: JOLENE BIANCHI UNIT: [id number] ADM DATE: 12/06/19 AGE: 44 : [birth year] SEX: M ROOM/BED: D.2227 AUTHOR: LIBAN YOUNG PHYSICIAN: REFERRING PHYSICIAN: PAULO WHITEHEAD MD DATE OF SERVICE: 12/09/19 Discharge Plan Patient Name: JOLENE BIANCHI [facility] : 1975 Planned Disposition: Home Health Service Anticipated Discharge Date: Discharge Date: Expected LOS: Initial Reviewer: [email or web address] Initial Review Date: 12/06/2019 Generated: 12/09/19 11:41 am Last DP export: 12/07/19 1:31 p Patient Name: JOLENE BIANCHI Page [phone] at 1042 All edits/amendments must be made on the electronic document DICTATION DATE: 12/09/19 1042 MULTIFOLD OPERATOR: CHASE 12/09/19 1042 RPT#: [id number] DC DATE: STATUS: ADM IN [facility] [address] [place] [address] END OF REPORT
--- NOTE | 2019-12-09 10:51 | MORECARE ---
CASE MANAGEMENT DISCHARGE SUMMARY PATIENT: JOLENE BIANCHI UNIT: [id number] ADM DATE: 12/06/19 AGE: 44 : 77 SEX: M ROOM/BED: D.2227 AUTHOR: LIBAN YOUNG PHYSICIAN: REFERRING PHYSICIAN: PAULO WHITEHEAD MD DATE OF SERVICE: 12/09/19 Discharge Plan Patient Name: JOLENE BIANCHI [facility] : 1975 Planned Disposition: Home Health Service Anticipated Discharge Date: Discharge Date: Expected LOS: Initial Reviewer: [email or web address] Initial Review Date: 12/06/2019 Generated: 12/09/19 11:50 am Comments DCP- Discharge Planning Updated by [id number]: Cally Knapp on 12/09/19 9:[address] Patient Name: JOLENE BIANCHI Admission Status: ER Accout number: [id number] Admission Date: 12-06-2019 : 1975 Admission Diagnosis:UNSPECIFIED ABDOMINAL PAIN Attending: PAULO WHITEHEAD Current LOS: 3 Anticipated DC Date: Planned Disposition: Home Health Service Primary Insurance: [employer] EXCHANGE Discharge Planning Comments: CM met with patient at bedside after explaining CM role and obtaining verbal consent. CM discussed availability / needs of home health, REHAB and medical equipment. PATIENT DENIES ANY DISCHARGE NEEDS. HAS COLOSTOMY SUPPLIES AT HOME AND PLANS TO [facility] WHEN DISCHARGED. Research And Development Engineer: Cally Knapp Last DP export: 12/09/19 9:42 a Patient Name: JOLENE BIANCHI Page [phone] at 1051 All edits/amendments must be made on the electronic document DICTATION DATE: 12/09/19 1050 HAND INSPECTOR: CHASE 12/09/19 1050 RPT#: [id number] DC DATE: STATUS: ADM IN [facility] [address] [place] [address] END OF REPORT
[2019-12-09] MEDS ORDERED: OMNICEF300 MG PO (11:48)
[2019-12-09 12:01] VITALS: BP 120/76
--- NOTE | 2019-12-09 13:50 | NUR ---
DISCHARGE EDUCATION PROVIDED BOTH WRITTEN AND VERBAL. VERBALIZED UNDERSTANDING. REQUESTED AND GIVEN AT LEAST WEEK WORTH OF DRSG CHANGE SUPPLIES. DENIES FURTHER NEEDS. WAITING RIDE.
--- NOTE | 2019-12-09 14:13 | NUR ---
DC HOME AT THIS TIME WITH ALL PERSONAL BELONGS. NO C/O N OTED OR VOICED IV DC. STABLE CONDITION UPON DEPARTURE. DRESSING CHANGED PRIOR TO DC.
--- NOTE | 2019-12-10 09:26 | MORECARE ---
CASE MANAGEMENT DISCHARGE SUMMARY PATIENT: JOLENE BIANCHI UNIT: [id number] ADM DATE: 12/06/19 AGE: 44 : 77 SEX: M ROOM/BED: D.2227 AUTHOR: LIBAN YOUNG PHYSICIAN: REFERRING PHYSICIAN: PAULO WHITEHEAD MD DATE OF SERVICE: 12/10/19 Discharge Plan Patient Name: JOLENE BIANCHI [facility] : 1975 Planned Disposition: Home Health Service Anticipated Discharge Date: Discharge Date: 12/09/2019 Expected LOS: Initial Reviewer: [id number] Initial Review Date: 12/06/2019 Generated: 12/10/19 10:26 am DCP- Discharge Planning Updated by [email or web address]: Cally Knapp on 12/09/19 9:[address] Patient Name: JOLENE BIANCHI Admission Status: ER Accout number: [id number] Admission Date: 12-06-2019 : 1975 Admission Diagnosis:UNSPECIFIED ABDOMINAL PAIN Attending: PAULO WHITEHEAD Current LOS: 3 Anticipated DC Date: Planned Disposition: Home Health Service Primary Insurance: [employer] EXCHANGE Discharge Planning Comments: CM met with patient at bedside after explaining CM role and obtaining verbal consent. CM discussed availability / needs of home health, REHAB and medical equipment. PATIENT DENIES ANY DISCHARGE NEEDS. HAS COLOSTOMY SUPPLIES AT HOME AND PLANS TO [facility] WHEN DISCHARGED. Maintenance Pipefitter: Cally Knapp Last DP export: 12/09/19 9:51 a Patient Name: JOLENE BIANCHI Page [phone] at 0926 All edits/amendments must be made on the electronic document DICTATION DATE: 12/10/19925 ELEMENTARY ART TEACHER: CHASE 12/10/19925 RPT#: [id number] DC DATE:12/09/19 STATUS: DIS IN [facility] [address] [place] [address] END OF REPORT
== END 2019-12-09 14:14 | disposition home health service (06) | DRG 392 ==
LOC: D.ER 22:24 → D.MS 12-06 02:50
PROVIDERS: Emergency Medicine; Family Medicine; ADMIT Family Medicine; ATTEND Family Medicine
DX: K52.9 Noninfective gastroenteritis and colitis, unspecified (principal); E87.1 Hypo-osmolality and hyponatremia; D64.9 Anemia, unspecified; I10 Essential (primary) hypertension

== ENCOUNTER → 2020-01-26 11:14 | Outpatient (CLI) | payer BC ==
[2019-12-06 17:00] VITALS: BMI 27.9
[~2020-01-26 11:14] MED LIST changes: +BENICAR20 MG PO; +FLAGYL500 MG PO; +KLONOPIN1 MG PO; +LEVOFLOXACIN500 MG PO
== END | disposition home or self-care (01) ==
LOC: D.CT 01-24 09:30
PROVIDERS: ATTEND Surgery
DX: K57.20 Diverticulitis of large intestine with perforation and abscess without bleeding (principal)

== ENCOUNTER 2020-02-04 15:26 | Inpatient (IN) | payer BC ==
[~2020-02-04] VITALS: Ht 185.4 cm; Wt 92.1 kg
--- NOTE | ~2020-02-04 | OP ---
PATIENT NAME: JOLENE BIANCHI MEDICAL RECORD: [id number] :[birth year] LOCATION:D.[id number] ADMISSION DATE:02/08/20 SURGEON: KEM PRIDE MD DATE OF OPERATION: 02/08/2020 PREOPERATIVE DIAGNOSES: 1. Colostomy in situ. 2. History of perforated diverticulitis, status post Jesse's procedure. 3. Chronic pain. 4. Hypertension. 5. Gout. POSTOPERATIVE DIAGNOSES: 1. Colostomy in situ. 2. History of perforated diverticulitis, status post Jesse's procedure. 3. Chronic pain. 4. Hypertension. 5. Gout. PROCEDURE: Colostomy takedown. SURGEON: Kem Pride MD REPORT OF PROCEDURE: The patient's abdomen was prepped and draped in sterile fashion. The patient had a colostomy in the left lateral abdomen. Electrocautery was used to come around the ostomy including a small ring of skin. We used electrocautery to come through the subcutaneous tissue and eventually dissect out the colostomy from all the subcutaneous tissues. We penetrated into the abdomen through the fascia and was able to free up the colostomy completely. We had good mobilization of the colostomy. At this point, we were able to make a window in the mesocolon on the distal colostomy and this mesocolon was transected and clamped and tied with 3-0 silk. We transected the colon on a nice clean noninflamed portion of it and placed a pursestring with 2-0 Prolene stitch. A 25 EEA anvil was then inserted and the pursestring was tied down tightly. We then cleaned the fatty tissue off the edge of the colon. We placed this back into the abdominal cavity through the ostomy opening. We undermined the tissues and was able to close the posterior fascial layer longitudinally with a running 0 Vicryl. We then reapproximated the anterior fascial layer longitudinally with a running 0 Prolenes. We then inserted a Veress needle in the left upper quadrant and insufflated the abdomen. A 5-mm trocar was then placed in the abdomen at the level of the umbilicus just to the right of it. Once we got into the abdomen, we could see that the patient had what appeared to be a hernia defect in the lower midline from his previous surgery, went ahead and elected just to perform an open procedure, so we could repair this hernia defect. We removed the 5-mm trocar. The patient had a midline incision with a large scar. We made an ovoid incision around this to remove the scar tissue. As we came down, we used electrocautery to come through the subcutaneous tissue and eventually came through the hernia sac. We entered the abdominal cavity. At this point, I could visualize a small amount of adhesions present that were very thin mainly of the small bowel to itself into the abdominal wall. This was teased down carefully and the small bowel was pushed up in the abdomen. I could then find the patient's rectum where I previously placed Prolene stitch. This Prolene stitch was dissected free and removed. We then dissected the rectum free from any attachments and again this would easily mobilize up towards the pelvic inlet. We passed multiple anal OPERATIVE REPORT [id number] JOLENE BIANCHI dilators through with ease and then finally pass the 25 EEA stapler. We performed an end-to-end anastomosis of the distal colon to the proximal rectum. At the conclusion of this, we had 2 complete rings of tissue present in the stapler. We then checked the anastomosis under water and could see that there was no evidence of a leak while instilling air in through the rectum. We then oversewed the staple line using multiple Lemberted 3-0 silks. There was no tension on the anastomosis. We then irrigated out the abdomen thoroughly with normal saline and assured there was no sign of any bleeding or leakage. I then undermined the tissues of the hernia defect and was able to trace these back to the fascial edge. We removed the hernia sac and had a good viable fascial tissue visible. There did not appear to be any tension on this fascia with bringing it to the midline, so I performed a closure of the fascial defect using running #1 loop PDS times 2. The undermined subcutaneous tissue was then reapproximated with multiple interrupted 3-0 Vicryls and the skin was closed with jason. The left abdominal ostomy site was then closed in 2 layers with an inner layer of 3-0 Vicryl in a pursestring and outer layer with 2-0 Vicryl in a pursestring at the subcutaneous tissues. We then packed this wound and the wounds were dressed appropriately. COMPLICATIONS: None. CONDITION: Stable. ANESTHESIA: General endotracheal. BLOOD LOSS: 50 mL. TRANSINT:[id number] Voice Confirmation ID: [id number] DOCUMENT ID: [id number] KEM PRIDE MD CC: ELOINA BEDOYA [id number] DICTATION DATE: 02/08/20 1145 SALES OPERATIONS MANAGER: 02/08/202121 ADM IN [facility] [address] [place] [id number]
[2020-02-08 06:49] LABS: BASOPHILS 0.5 % (0-2); EOSINOPHILS 12.2 % (0-7); HEMATOCRIT 42.1 % (42.0-54.0); HEMOGLOBIN 14.3 g/dL (13.5-17.5); LYMPHOCYTES 27.4 % (15-50); MCH 29.3 pg (26.0-34.0); MCV 86.3 fL (80.0-100.0); MONOCYTES 9.5 % (2-11); NEUTROPHILS 47.4 % (40-80); RBC 4.88 10x6/uL (4.20-6.10); RDW 14.4 % (11.5-14.5); WBC 3.7 10x3/uL (4.8-10.8)
[2020-02-08 06:57] LABS: PLATELET COUNT 154 10x3/uL (130-400)
[2020-02-08 07:22] LABS: CALC OSMOLALITY 278 mosm/kg (275-300); CALCIUM 10.1 mg/dL (8.5-10.1); CARBON DIOXIDE 31.4 mmol/L (21.0-32.0); CHLORIDE - SERUM 104 mmol/L (98-107); POTASSIUM - SERUM 4.2 mmol/L (3.5-5.1); SODIUM 140 mmol/L (136-145); UREA NITROGEN 10 mg/dL (7-18); eGFR NON AFRICAN AMERICAN 86 mL/min (90-120)
[2020-02-08 07:23] LABS: INR 0.93 (0.85-1.17); PROTIME 12.4 SECONDS (11.6-15.0)
[2020-02-08 07:24] LABS: APTT 29.4 SECONDS (22.8-39.4)
[2020-02-08 07:27] LABS: GLUCOSE 112 mg/dL (74-106)
[2020-02-08 08:18] VITALS: BP 109/72; BMI 26.8
[2020-02-08 12:42] VITALS: BP 146/85
[2020-02-08 17:24] VITALS: BP 140/93
[2020-02-08 20:00] VITALS: BP 126/81
--- NOTE | 2020-02-08 22:08 | NUR ---
2044} REQUESTING BOLUS FROM SALES AND SERVICE OFFICER DILAUDID.SYRINE EMPTY.NEW SYRINGE INSERTED BOLUS GIVEN REQUESTED.NEW ORDER REC'D FROM DR. PRIDE FOR ORAL PEPCID DISCUSSED ORDER FOR NPO DISCUSSED WITH PATIENT ORDER WAS PUT IN BY DR PRIDE WILL CALL HIM TO SEE IF HE WOULD LIKE TO CHGE TO IV OR GIVE WITH SIP H20.2199} GENNAUPKEYONNA EDMONDS RN HERE PT. STATES DIDN'T GET BOLUS NURSE TRIED TO GIVE ME PILL BY MOUTH.INFORMED FAN RUNNER WAS IN PROCESS OF CALLING DR. PRIDE IN [facility] TO ORAL PEPCID ORDER WRITTEN BY DR PRIDE. REQUESTING NEW NURSE.PUMP SHOWING CHANNEL ERROR ADJUSTED PUMP WORKING PROPERLY
[2020-02-09] VITALS (7 sets, daily range): BP systolic 118–133; BP diastolic 71–83; Ht 185.4 cm; Wt 92.1 kg
[2020-02-09 06:27] LABS: BASOPHILS 0.2 % (0-2); EOSINOPHILS 0.2 % (0-7); HEMATOCRIT 40.8 % (42.0-54.0); HEMOGLOBIN 13.9 g/dL (13.5-17.5); IMMATURE GRANULOCYTES 0.2 % (0-5); LYMPHOCYTES 11.2 % (15-50); MCH 29.6 pg (26.0-34.0); MCHC 34.1 g/dL (31.0-37.0); MONOCYTES 10.7 % (2-11); NEUTROPHILS 77.5 % (40-80); PLATELET COUNT 132 10x3/uL (130-400); RBC 4.69 10x6/uL (4.20-6.10); RDW 14.2 % (11.5-14.5)
[2020-02-09 06:34] LABS: CALC OSMOLALITY 274 mosm/kg (275-300); CALCIUM 9.6 mg/dL (8.5-10.1); CARBON DIOXIDE 29.5 mmol/L (21.0-32.0); CHLORIDE - SERUM 103 mmol/L (98-107); CREATININE - SERUM 0.9 mg/dL (0.6-1.3); GLUCOSE 97 mg/dL (74-106); POTASSIUM - SERUM 3.7 mmol/L (3.5-5.1); SODIUM 138 mmol/L (136-145); UREA NITROGEN 9 mg/dL (7-18); eGFR NON AFRICAN AMERICAN > 90 mL/min (90-120)
[2020-02-09 06:44] LABS: WBC 6.1 10x3/uL (4.8-10.8)
--- NOTE | 2020-02-09 08:40 | NUR ---
PT ALERT AND ORIENTED X4 UPON ENTERING. PT STATES HIS PEPCID IS NOT SUPPOSED TO BE PO, WILL CONTACT DOCTOR. HUNG NEW BAG OF IV FLUIDS. ADMINISTERED SUPERVISOR ASSEMBLING BOLUS DOSE PER REQUEST. PT RESTING COMFORTABLY, DENIES ANY NEEDS. BED IN LOWEST POSITION, BED RAILS X2, CALL LIGHT WITHIN REACH. WILL CONTINUE TO MONITOR.
--- NOTE | 2020-02-09 11:11 | NUR ---
I have reviewed this patient and I concur with the Shift Assessment completed by the Licensed Practical Nurse today this shift.
--- NOTE | 2020-02-09 12:27 | NUR ---
ADMINISTERED PRN ATIVAN FOR ANXIETY, STARTED A NEW SYRINGE OF DILAUD[employer] DISTRICT ATTORNEY. RESTING COMFORTABLY IN BED. DENIES ANY NEEDS. WILL CONTINUE TO MONITOR.
--- NOTE | 2020-02-09 13:45 | NUR ---
REMOVED PT YI, TOLERATED WELL. PT IS GOING TO ATTEMPT TO AMBULATE HIMSELF AND MOVE AROUND SOME. DENIES ANY NEEDS. WILL CONTINUE TO MONITOR.
--- NOTE | 2020-02-09 17:07 | NUR ---
ADMINISTERED MEDICAITON, TOLERATING WELL. REPORTS PAIN IS BETTER. PROVIDED PT WITH TOOTH PASTE, URINAL AND WATER BASIN. DENIES ANY OTHER NEEDS. WILL CONTINUE TO MONITOR.
[2020-02-10] VITALS: BP 103/58
[2020-02-10 04:00] VITALS: BP 102/59
[2020-02-10 04:50] LABS: BASOPHILS 0.1 % (0-2); EOSINOPHILS 1.5 % (0-7); HEMATOCRIT 39.3 % (42.0-54.0); HEMOGLOBIN 13.3 g/dL (13.5-17.5); IMMATURE GRANULOCYTES 0.4 % (0-5); LYMPHOCYTES 13.6 % (15-50); MCH 29.8 pg (26.0-34.0); MCHC 33.8 g/dL (31.0-37.0); MCV 88.1 fL (80.0-100.0); MEAN PLATELET VOLUME 9.1 fL (7.4-10.4); MONOCYTES 12.5 % (2-11); NEUTROPHILS 71.9 % (40-80); PLATELET COUNT 121 10x3/uL (130-400); RBC 4.46 10x6/uL (4.20-6.10); RDW 14.1 % (11.5-14.5); WBC 6.9 10x3/uL (4.8-10.8)
[2020-02-10 05:27] LABS: ANION GAP 10.1 mmol/L (8-16); CALCIUM 9.9 mg/dL (8.5-10.1); CARBON DIOXIDE 28.6 mmol/L (21.0-32.0); POTASSIUM - SERUM 3.7 mmol/L (3.5-5.1)
[2020-02-10 05:41] LABS: CREATININE - SERUM 1.2 mg/dL (0.6-1.3)
[2020-02-10 08:00] VITALS: BP 121/64
[2020-02-10 12:00] VITALS: BP 132/80
[2020-02-10 12:34] LABS: BILIRUBIN NEGATIVE (NEGATIVE); GLUCOSE NEGATIVE (NEGATIVE); KETONE LARGE mg/dL (NEGATIVE); NITRITE NEGATIVE (NEGATIVE); UROBILINOGEN NORMAL (NORMAL); WHITE CELLS - URINE 0-5 /hpf (NEGATIVE)
[2020-02-10 12:35] LABS: BACTERIA FEW /hpf (NEGATIVE); EPITHELIAL CELLS RARE /hpf (0-5); RED CELLS - URINE RARE /hpf (0-5)
[2020-02-10 15:26] VITALS: BP 130/94
[2020-02-10 20:00] VITALS: BP 143/89
--- NOTE | 2020-02-10 20:00 | NUR ---
PATIENT RESTING IN BED ON PHONE. NO S/S OF ACUTE DISTRESS. 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 WILL BE GIVEN. PATIENT HAS IV IN LEFT HAND, NORMAL SALINE @ 125 ML/HR. IV IS PATENT WITHOUT REDNESS, SWELLING, OR TENDERNESS. PATIENT HAS LEONARDO UNDER BELLYBUTTON. PATIENT HAS 3 LAP SITES. PATIENT HAS SPOT ON LEFT SIDE ON ABDOMEN THAT HAS SOME TYPE OF PACKING IN IT. IT WAS PACKED IN SURGERY, AND HASN'T BEEN UNPACKED BY THE DOCTOR YET. THERE ARE NO ORDERS ON PACKING THE WOUND. PATIENT IS UP WITH ASSISTANCE TO THE BATHROOM. CALL LIGHT WITHIN REACH. WILL CONTINUE TO MONITOR.
[2020-02-11] VITALS: BP 140/90
[2020-02-11 04:00] VITALS: BP 136/89
--- NOTE | 2020-02-11 04:05 | NUR ---
I have reviewed this patient and I concur with the Shift Assessment completed by the Licensed Practical Nurse today this shift.
[2020-02-11 06:52] LABS: BASOPHILS 0.3 % (0-2); EOSINOPHILS 3.9 % (0-7); HEMATOCRIT 31.6 % (42.0-54.0); IMMATURE GRANULOCYTES 0.5 % (0-5); LYMPHOCYTES 19.2 % (15-50); MCH 28.9 pg (26.0-34.0); MCHC 33.5 g/dL (31.0-37.0); MEAN PLATELET VOLUME 9.1 fL (7.4-10.4); MONOCYTES 11.4 % (2-11); NEUTROPHILS 64.7 % (40-80); PLATELET COUNT 128 10x3/uL (130-400); RBC 3.67 10x6/uL (4.20-6.10); RDW 13.7 % (11.5-14.5)
[2020-02-11 06:53] LABS: CALC OSMOLALITY 277 mosm/kg (275-300); CALCIUM 9.2 mg/dL (8.5-10.1); CARBON DIOXIDE 28.1 mmol/L (21.0-32.0); CHLORIDE - SERUM 106 mmol/L (98-107); CREATININE - SERUM 0.9 mg/dL (0.6-1.3); GLUCOSE 106 mg/dL (74-106); POTASSIUM - SERUM 3.5 mmol/L (3.5-5.1); SODIUM 140 mmol/L (136-145); eGFR NON AFRICAN AMERICAN > 90 mL/min (90-120)
[2020-02-11 06:54] LABS: UREA NITROGEN 9 mg/dL (7-18)
[2020-02-11 06:58] LABS: HEMOGLOBIN 10.6 g/dL (13.5-17.5); MCV 86.1 fL (80.0-100.0); WBC 3.9 10x3/uL (4.8-10.8)
[2020-02-11 08:08] VITALS: BP 138/88
--- NOTE | 2020-02-11 10:00 | NUR ---
PATIENT WALKING AROUND HALLS. ORIENTED. DENIES PAIN OR NEEDS. WILL CONTINUE TO MONITOR.
[2020-02-11 13:17] VITALS: BP 135/94
--- NOTE | 2020-02-11 15:26 | NUR ---
DISCHARGE TEACHING COMPLETE. NO FURTHER QUESTIONS. IV CATH REMOVED, CATH TIP INTACT. BELONGINGS GATHERED. PATIENT AND FAMILY LEFT FLOOR VIA WHEELCHAIR TO HOME.
== END 2020-02-11 15:28 | disposition home or self-care (01) | DRG 346 ==
LOC: D.SDCHOLD 02-08 06:27 → D.MS 02-08 06:27 → D.SDCHOLD 02-08 08:45 → D.MS 02-08 12:32
PROVIDERS: Anesthesiology; Surgery; ADMIT Surgery; ATTEND Surgery
PROC: 0WQF0ZZ Repair Abdominal Wall, Open Approach (ICD-10-PCS; 2020-02-08)
PROC: 0DSM0ZZ Reposition Descending Colon, Open Approach (ICD-10-PCS; principal; 2020-02-08 08:45)
DX: Z43.3 Encounter for attention to colostomy (principal); G89.29 Other chronic pain; I10 Essential (primary) hypertension; M10.9 Gout, unspecified

== ENCOUNTER → 2020-02-16 16:42 | Outpatient (CLI) | payer BC ==
[2020-02-09 14:24] VITALS: BMI 26.7
== END | disposition home or self-care (01) ==
LOC: D.CT 16:30
PROVIDERS: ATTEND Surgery
DX: Z90.49 Acquired absence of other specified parts of digestive tract (principal); K57.92 Diverticulitis of intestine, part unspecified, without perforation or abscess without bleeding